=== PATIENT | female | born 1935 | race Two or more races ===

== ENCOUNTER 2018-10-23 17:19 | Inpatient (IN) | payer MEDICARE, MEDICAID ==
[~2018-10-23] VITALS: Ht 175.3 cm; Wt 59.0 kg
[~2018-10-23 17:19] MED LIST: Heparin 5000 units/ml inj SUBQ SCH
--- NOTE | 2018-10-23 19:45 | NUR ---
NURSE NOTES: Received report from RONI Mohan. Direct admit from [facility]. Pt not here yet. Ambulance ETA 1900 per report.
[2018-10-23 21:00] VITALS: BP 140/94
--- NOTE | 2018-10-23 21:00 | NUR ---
NURSE NOTES: Direct admit from [facility]. Received report & pt from ambulance tech Handy, pt on gurney. No s/s of acute distress notes & c/o 0/10 pain. Belongings list checked & accounted for. IV site intact & S/L'd. Skin intact. Pt has left wrist splint. VSS. Med recon done. Called Dr. العلي for admission orders. Oriented pt to hospital facility. Bed in lowest position, call light within reach. Will continue to monitor.
[2018-10-23] MEDS ORDERED: VIMPAT200 MG PO (21:53)
[2018-10-23] MEDS ORDERED: NORVASC10 MG ORAL (21:54)
--- NOTE | 2018-10-23 22:30 | NUR ---
NURSE NOTES: Per pt's son Deyvi, pt not entirely allergic to opioids & states that long time ago, pt experienced side effect/adverse reaction such as altered mental status. Pain meds would severely knock out pt even with just Tylenol & Aspirin. Informed Dr. العلي regarding this issue & per MD, still ok to give ordered PRN pain meds & just monitor closely.
[2018-10-23] MEDS ORDERED: Norco 5mg/325mg tab ORAL PRN (22:45)
[2018-10-23] MEDS ORDERED: Morphine Sulfate 2mg/ml Inj(IV/IM USE ONLY) IVP PRN (22:45)
[2018-10-24] VITALS (11 sets, daily range): BP systolic 90–155; BP diastolic 63–89
[2018-10-24 07:24] LABS: BASOPHILS % (AUTO) 1.7 % (0.0-2.0); EOSINOPHILS % (AUTO) 0.7 % (0.0-3.0); HEMOGLOBIN 12.9 G/DL (12.0-16.0); LYMPHOCYTES % (AUTO) 14.5 % (20.0-45.0); MEAN CORPUSCULAR VOLUME 91 FL (80-99); MONOCYTES % (AUTO) 9.4 % (1.0-10.0); NEUTROPHILS % (AUTO) 73.7 % (45.0-75.0); PLATELET COUNT 258 K/UL (150-450); RED CELL DISTRIBUTION WIDTH 12.8 % (11.6-14.8); WHITE BLOOD COUNT 10.1 K/UL (4.8-10.8)
[2018-10-24 07:43] LABS: ANION GAP 10 mmol/L (5-15); BLOOD UREA NITROGEN 20 mg/dL (7-18); CALCIUM 9.7 MG/DL (8.5-10.1); CARBON DIOXIDE 26 MMOL/L (21-32); CHLORIDE 97 MMOL/L (98-107); CREATININE 1.1 MG/DL (0.55-1.30); PHOSPHORUS 3.2 MG/DL (2.5-4.9); POTASSIUM 3.9 MMOL/L (3.5-5.1); SODIUM 133 MMOL/L (136-145)
--- NOTE | 2018-10-24 07:45 | NUR ---
HAND-OFF: Report given to RONI Santos. Endorsed to AM to have consent signed by son (Deyvi)
[2018-10-24 07:50] LABS: INR 1.2 (0.9-1.1)
[2018-10-24] MEDS ORDERED: D5 1/2NS 1,000 ML IV SCH (08:00)
--- NOTE | 2018-10-24 08:00 | NUR ---
NURSE NOTES: Patient is alert and oriented,respirations are unlabored.Left foot pedal pulse strong,no complaint of pain at this time.patient will be NPO after breakfast.Call light within reach,bed alarm is on.
[2018-10-24] MEDS: Heparin 5000 units/ml inj SUBQ SCH ×2 (09:00→21:00)
[2018-10-24] MEDS: Lacosamide 50mg tablet ORAL SCH ×2 (09:41→18:00)
--- NOTE | 2018-10-24 11:26 | Consultation ---
History of Present Illness General Date patient seen: Oct 24, 2018 Present Illness HPI 82 year old female with hx of HTN and seizures had a witnessed fall on 2018. she was taken to [facility]. An x-ray revealed a fracture of the left femoral neck. The patient is transferred to [facility] for insurance purposes. The patient is admitted with left hip fracture for surgical repair. Allergies: Coded Allergies: OPIOIDS - MORPHINE ANALOGUES (Verified Adverse Reaction, Intermediate, Altered Mental Status, 10/23/18) Medication History Scheduled Amlodipine Besylate (Norvasc), 10 MG ORAL DAILY, (Reported) Heparin Sod (Porcine) (Heparin Sodium*), 5,000 UNITS SUBQ EVERY 12 HOURS Lacosamide (Vimpat), 200 MG PO BID, (Reported) Scheduled PRN Hydrocodone Bit/Acetaminophen 5-325* (Gower 5-325*), 2 TAB ORAL Q6H PRN Patient History Healthcare decision maker Resuscitation status Full Code Advanced Directive on File Past Medical/Surgical History Past Medical/Surgical History: (1) History of hypertension Review of Systems All Other Systems: negative except mentioned in HPI Physical Exam General Appearance: cachetic Lines, tubes and drains: peripheral HEENT: normocephalic, atraumatic Neck: non-tender Respiratory/Chest: chest wall non-tender, lungs clear Cardiovascular/Chest: normal peripheral pulses, normal rate Abdomen: normal bowel sounds Last 24 Hour Vital Signs Date Time Temp Pulse Resp B/P (MAP) Pulse Ox O2 Delivery O2 Flow Rate FiO2 10/24/18 09:41 95 126/82 10/24/18 09:00 Room Air 10/24/18 08:00 99.4 92 18 149/78 (101) 99 10/24/18 04:00 98.9 97 20 114/74 (87) 97 10/24/18 00:00 99.5 97 20 124/89 (101) 97 10/23/18 22:00 Room Air 10/23/18 21:00 98.4 99 20 140/94 (109) 98 Laboratory Tests Test 10/24/18 06:26 White Blood Count 10.1 K/UL (4.8-10.8) Red Blood Count 4.50 M/UL (4.20-5.40) Hemoglobin 12.9 G/DL (12.0-16.0) Hematocrit 41.0 % (37.0-47.0) Mean Corpuscular Volume 91 FL (80-99) Mean Corpuscular Hemoglobin 28.7 PG (27.0-31.0) Mean Corpuscular Hemoglobin Concent 31.4 G/DL (32.0-36.0) L Red Cell Distribution Width 12.8 % (11.6-14.8) Platelet Count 258 K/UL (150-450) Mean Platelet Volume 5.3 FL (6.5-10.1) L Neutrophils (%) (Auto) 73.7 % (45.0-75.0) Lymphocytes (%) (Auto) 14.5 % (20.0-45.0) L Monocytes (%) (Auto) 9.4 % (1.0-10.0) Eosinophils (%) (Auto) 0.7 % (0.0-3.0) Basophils (%) (Auto) 1.7 % (0.0-2.0) Prothrombin Time 12.5 SEC (9.30-11.50) H Prothromb Time International Ratio 1.2 (0.9-1.1) H Activated Partial Thromboplast Time 32 SEC (23-33) Sodium Level 133 MMOL/L (136-145) L Potassium Level 3.9 MMOL/L (3.5-5.1) Chloride Level 97 MMOL/L (98-107) L Carbon Dioxide Level 26 MMOL/L (21-32) Anion Gap 10 mmol/L (5-15) Blood Urea Nitrogen 20 mg/dL (7-18) H Creatinine 1.1 MG/DL (0.55-1.30) Estimat Glomerular Filtration Rate mL/min (>60) Glucose Level 112 MG/DL (74-106) H Calcium Level 9.7 MG/DL (8.5-10.1) Phosphorus Level 3.2 MG/DL (2.5-4.9) Magnesium Level 2.0 MG/DL (1.8-2.4) Troponin I 0.000 ng/mL (0.000-0.056) Height (Feet): 5 Height (Inches): 9.00 Weight (Pounds): 130 Medications Current Medications Medications (Trade) Dose Ordered Sig/Brynn Route PRN Reason Start Time Stop Time Status Last Admin Dose Admin Acetaminophen (Tylenol) 650 mg Q6H PRN ORAL Mild Pain/Temp > 100.5 10/23/18 22:45 11/22/18 22:44 Acetaminophen/ Hydrocodone Bitart (Gower 5/325) 1 tab Q6H PRN ORAL Moderate pain (4-6) 10/23/18 22:45 10/30/18 22:44 Amlodipine Besylate (Norvasc) 10 mg DAILY ORAL 10/24/18 09:00 11/23/18 08:59 10/24/18 09:41 Dextrose/Sodium Chloride 1,000 ml @ 75 mls/hr [id number] IV 10/24/18 08:00 11/23/18 07:59 10/24/18 09:42 Heparin Sodium (Porcine) (Heparin 5000 units/ml) 5,000 units EVERY 12 HOURS SUBQ 10/24/18 09:00 11/22/18 08:59 Lacosamide (Vimpat) 200 mg BID ORAL 10/24/18 09:00 11/23/18 08:59 10/24/18 09:41 Morphine Sulfate (Morphine Sulfate) 2 mg EVERY 6 HOURS PRN IVP Severe pain (7-10) 10/23/18 22:45 10/30/18 22:44 Ondansetron HCl (Zofran) 4 mg EVERY 4 HOURS PRN IVP Nausea & Vomiting 10/23/18 22:45 11/22/18 22:44 Assessment/Plan Problem List: (1) Hip fracture, left ICD Codes: S72.002A - Fracture of unspecified part of neck of left femur, initial encounter for closed fracture SNOMED: 586216283 (2) History of hypertension ICD Codes: Z86.79 - Personal history of other diseases of the circulatory system SNOMED: 334504592 (3) Hyponatremia ICD Codes: E87.1 - Hypo-osmolality and hyponatremia SNOMED: 71361451 Assessment/Plan ortho evaluation pain management hyponatremia w/u monitor BP Edd Harris MD Oct 24, 2018 11:26
[2018-10-24] MEDS ORDERED: HYDROcodone/Acetamin 10/325 tab ORAL PRN ×2 (11:30)
--- NOTE | 2018-10-24 13:20 | NUR ---
CASE MANAGEMENT:REVIEW 82 YR OLD FEMALE TRANSFERRED FROM [facility] SI: LEFT HIP FRACTURE 98.4 99 20 140/94 98% ON RA NA-133 BUN+20 GLUCOSE+112 INR+1.2 IS: TO SURGERY FOR LT HIP HEMIARTHROPLASTY : MED/SURG STATUS 3 EAST INTERQUAL CRITERIA MET
--- NOTE | 2018-10-24 14:15 | Consultation ---
DATE OF CONSULTATION: 10/23/2018 CONSULTING PHYSICIAN: Kamlesh Moses M.D. CHIEF COMPLAINT: Left hip pain. HISTORY OF PRESENT ILLNESS: This is a pleasant patient female who sustained a mechanical fall. She was diagnosed with left femoral neck fracture at outside facility, transferred here for further care and recommendations. PAST MEDICAL HISTORY: Reviewed from the intake chart. SURGICAL HISTORY: Reviewed from the intake chart. MEDICATIONS: Reviewed from the intake chart. PHYSICAL EXAMINATION: GENERAL: The patient is resting comfortably on bed. She has moderate discomfort in the left leg. EXTREMITIES: Left leg is shortened and internally rotated. Posterior calf is soft. NEUROVASCULAR: Normal. IMAGING STUDIES: Show displaced femoral neck fracture. DISCUSSION: At this point, she is indicative of operative fixation. She is actually pretty active female who ambulates without any assistive device. We will make her NPO after midnight in anticipation of surgery tomorrow. She is pending medical clearance in the meantime. Kamlesh Moses M.D. DR: SOLE JOB#: [id number] CC:
--- NOTE | 2018-10-24 16:39 | History & Physical ---
History and Physical History & Physicial Dictated for Int Med-Dr العلي no. [id number]. Cardiovascular risk for surgery is low, therefore no contraindications for surgery. Trent Alcantara MD Oct 24, 2018 16:39
[2018-10-24] MEDS ORDERED: Bupivacaine 0.5% Inj 30 ml vial INJ ONE (17:15)
[2018-10-24] MEDS ORDERED: cloNIDine 1000mcg/10ml inj ONE (17:15)
--- NOTE | 2018-10-24 17:19 | Cardiac Electrophysiology PN ---
Subjective Subjective Cardiology consult dictated.[id number] No CAD or CHF. Echo Nl EF 60% Troponin negative No syncope. No further cardiac testing needed prior to Left hip ORIF DW RN Objective Last 24 Hour Vital Signs Date Time Temp Pulse Resp B/P (MAP) Pulse Ox O2 Delivery O2 Flow Rate FiO2 10/24/18 09:41 95 126/82 10/24/18 09:00 Room Air 10/24/18 08:00 99.4 92 18 149/78 (101) 99 10/24/18 04:00 98.9 97 20 114/74 (87) 97 10/24/18 00:00 99.5 97 20 124/89 (101) 97 10/23/18 22:00 Room Air 10/23/18 21:00 98.4 99 20 140/94 (109) 98 Laboratory Tests Test 10/24/18 06:25 10/24/18 06:26 Osmolality 283 mOsm/kg (297-317) L Uric Acid 5.3 MG/DL (2.6-7.2) Thyroid Stimulating Hormone (TSH) 1.382 uiU/mL (0.358-3.740) Free Thyroxine 1.19 NG/DL (0.76-1.46) Free Triiodothyronine 2.5 pg/mL (2.3-4.2) Cortisol Pending White Blood Count 10.1 K/UL (4.8-10.8) Red Blood Count 4.50 M/UL (4.20-5.40) Hemoglobin 12.9 G/DL (12.0-16.0) Hematocrit 41.0 % (37.0-47.0) Mean Corpuscular Volume 91 FL (80-99) Mean Corpuscular Hemoglobin 28.7 PG (27.0-31.0) Mean Corpuscular Hemoglobin Concent 31.4 G/DL (32.0-36.0) L Red Cell Distribution Width 12.8 % (11.6-14.8) Platelet Count 258 K/UL (150-450) Mean Platelet Volume 5.3 FL (6.5-10.1) L Neutrophils (%) (Auto) 73.7 % (45.0-75.0) Lymphocytes (%) (Auto) 14.5 % (20.0-45.0) L Monocytes (%) (Auto) 9.4 % (1.0-10.0) Eosinophils (%) (Auto) 0.7 % (0.0-3.0) Basophils (%) (Auto) 1.7 % (0.0-2.0) Prothrombin Time 12.5 SEC (9.30-11.50) H Prothromb Time International Ratio 1.2 (0.9-1.1) H Activated Partial Thromboplast Time 32 SEC (23-33) Sodium Level 133 MMOL/L (136-145) L Potassium Level 3.9 MMOL/L (3.5-5.1) Chloride Level 97 MMOL/L (98-107) L Carbon Dioxide Level 26 MMOL/L (21-32) Anion Gap 10 mmol/L (5-15) Blood Urea Nitrogen 20 mg/dL (7-18) H Creatinine 1.1 MG/DL (0.55-1.30) Estimat Glomerular Filtration Rate mL/min (>60) Glucose Level 112 MG/DL (74-106) H Calcium Level 9.7 MG/DL (8.5-10.1) Phosphorus Level 3.2 MG/DL (2.5-4.9) Magnesium Level 2.0 MG/DL (1.8-2.4) Troponin I 0.000 ng/mL (0.000-0.056) Daniel Aguilar MD Oct 24, 2018 17:19
--- NOTE | 2018-10-24 17:23 | Anethesia Preoperative Eval ---
Anesthesia Pre-op PMH/ROS General Date of Evaluation: Oct 24, 2018 Time of Evaluation: 19:01 Anesthesiologist: Rony ASA Score: ASA 3 - Emergency Mallampati Score Class I : Soft palate, uvula, fauces, pillars visible Class II: Soft palate, uvula, fauces visible Class III: Soft palate, base of uvula visible Class IV: Only hard plate visible Mallampati Classification: Class II Surgeon: Josué Diagnosis: L Hip Fx Surgical Procedure: L Hip Hemiarthroplasty Anesthesia History: none Family History: no anesthesia problems Allergies: Coded Allergies: OPIOIDS - MORPHINE ANALOGUES (Verified Adverse Reaction, Intermediate, Altered Mental Status, 10/23/18) Medications: see eMAR Patient NPO?: Yes Past Medical History Cardiovascular: Reports: HTN Anesthesia Pre-op Phys. Exam Physician Exam Last Vital Signs Date Time Temp Pulse Resp B/P (MAP) Pulse Ox O2 Delivery O2 Flow Rate FiO2 10/24/18 09:41 95 126/82 10/24/18 09:00 Room Air 10/24/18 08:00 99.4 18 99 Constitutional: NAD Neurologic: CN 2-12 intact Cardiovascular: RRR Respiratory: CTA Gastrointestinal: S/NT/ND Airway Exam Mallampati Score: Class II MO: limited ROM: limited Teeth: missing Dentures: lower Anesthesia Pre-op A/P Labs Hematology Test 10/24/18 06:26 White Blood Count 10.1 K/UL (4.8-10.8) Red Blood Count 4.50 M/UL (4.20-5.40) Hemoglobin 12.9 G/DL (12.0-16.0) Hematocrit 41.0 % (37.0-47.0) Mean Corpuscular Volume 91 FL (80-99) Mean Corpuscular Hemoglobin 28.7 PG (27.0-31.0) Mean Corpuscular Hemoglobin Concent 31.4 G/DL (32.0-36.0) L Red Cell Distribution Width 12.8 % (11.6-14.8) Platelet Count 258 K/UL (150-450) Mean Platelet Volume 5.3 FL (6.5-10.1) L Neutrophils (%) (Auto) 73.7 % (45.0-75.0) Lymphocytes (%) (Auto) 14.5 % (20.0-45.0) L Monocytes (%) (Auto) 9.4 % (1.0-10.0) Eosinophils (%) (Auto) 0.7 % (0.0-3.0) Basophils (%) (Auto) 1.7 % (0.0-2.0) Coagulation Test 10/24/18 06:26 Prothrombin Time 12.5 SEC (9.30-11.50) H Prothromb Time International Ratio 1.2 (0.9-1.1) H Activated Partial Thromboplast Time 32 SEC (23-33) Chemistry Test 10/24/18 06:25 10/24/18 06:26 Osmolality 283 mOsm/kg (297-317) L Uric Acid 5.3 MG/DL (2.6-7.2) Thyroid Stimulating Hormone (TSH) 1.382 uiU/mL (0.358-3.740) Free Thyroxine 1.19 NG/DL (0.76-1.46) Free Triiodothyronine 2.5 pg/mL (2.3-4.2) Cortisol Pending Sodium Level 133 MMOL/L (136-145) L Potassium Level 3.9 MMOL/L (3.5-5.1) Chloride Level 97 MMOL/L (98-107) L Carbon Dioxide Level 26 MMOL/L (21-32) Anion Gap 10 mmol/L (5-15) Blood Urea Nitrogen 20 mg/dL (7-18) H Creatinine 1.1 MG/DL (0.55-1.30) Estimat Glomerular Filtration Rate mL/min (>60) Glucose Level 112 MG/DL (74-106) H Calcium Level 9.7 MG/DL (8.5-10.1) Phosphorus Level 3.2 MG/DL (2.5-4.9) Magnesium Level 2.0 MG/DL (1.8-2.4) Troponin I 0.000 ng/mL (0.000-0.056) Risk Assessment & Plan Assessment: ASA 3E Plan: GA, Spinal Status Change Before Surgery: No Pre-Antibiotics Dru Gram Ancef IV Given Within 1 Hr of Incision: Yes Time Given: 07:26 Joshua Uribe MD Oct 24, 2018 17:23
[2018-10-24] MEDS ORDERED: LR 1000ml 1,000 ML IVLG SCH (17:41)
[2018-10-24] MEDS ORDERED: Midazolam 2mg/2ml Inj IVP PRN (17:45)
[2018-10-24] MEDS ORDERED: Meperidine 50mg/ml Inj(FOR RIGORS ONLY) IVP PRN (17:45)
[2018-10-24] MEDS ORDERED: Atropine Sulfate 0.4mg/ml inj IVP PRN (17:45)
[2018-10-24] MEDS ORDERED: DiphenhydrAMINE 50mg/ml Inj IVP PRN (17:45)
[2018-10-24] MEDS ORDERED: Norco 5mg/325mg tab ORAL PRN (17:45)
[2018-10-24] MEDS ORDERED: Hydromorphone 0.5mg/0.5ml inj IVP PRN (17:45)
[2018-10-24] MEDS ORDERED: HYDROcodone/Acetamin 7.5/325 tab ORAL PRN ×2 (17:45→19:15)
[2018-10-24] MEDS ORDERED: Metoclopramide 10mg/2ml Inj IVP PRN (17:45)
[2018-10-24] MEDS ORDERED: fentaNYL 100 mcg/2 mL IV PRN (17:45)
[2018-10-24] MEDS ORDERED: oxyCODONE HCL/Acetaminophen 5/325mg ORAL PRN (17:45)
[2018-10-24] MEDS ORDERED: LORazepam Inj 2mg/ml 1ml IV PRN (17:45)
[2018-10-24] MEDS ORDERED: Ketorolac 30mg Inj ONE (17:46)
[2018-10-24] MEDS ORDERED: Morphine Sulfate PF 0 ML ONE (17:46)
[2018-10-24] MEDS ORDERED: NeoSporin Gu Irrig 1ml Amp IRRIG ONE (17:47)
[2018-10-24] MEDS ORDERED: Bupivacaine w/Epi 0.5% 30ml Vial INJ ONE (17:47)
[2018-10-24] MEDS ORDERED: Bacitracin 50000 Units Vial ONE (17:47)
[2018-10-24] MEDS ORDERED: Alfentanil 2ml Inj ONE (18:07)
[2018-10-24] MEDS ORDERED: Midazolam 2mg/2ml Inj ONE (18:07)
[2018-10-24] MEDS ORDERED: EPINEPHrine 1mg/1ml Amp ONE (18:09)
[2018-10-24] MEDS ORDERED: Sodium Chloride 10ml vial INJ ONE (18:10)
[2018-10-24] MEDS ORDERED: Lidocaine 1% MPF 10mg/ml 5ml ONE (18:15)
--- NOTE | 2018-10-24 18:30 | NUR ---
NURSE NOTES: Patient to OR by Josh,family was here.
--- NOTE | 2018-10-24 18:37 | Immediate Post-Op Evaluation ---
Immediate Post-Op Evalulation Immediate Post-Op Evalulation Procedure: L Hip Hemiarthroplasty Date of Evaluation: Oct 24, 2018 Time of Evaluation: 08:57 IV Fluids: 300 LR Blood Products: 0 Estimated Blood Loss: 50 Urinary Output: 200 Blood Pressure Systolic: 110 Blood Pressure Diastolic: 76 Pulse Rate: 97 Respiratory Rate: 16 O2 Sat by Pulse Oximetry: 100 Temperature (Fahrenheit): 97.6 Pain Score (1-10): 2 Nausea: No Vomiting: No Complications 0 Patient Status: awake, reacts, patent, none Hydration Status: adequate Dru Gram Ancef IV Given Within 1 Hr of Incision: Yes Time Given: 07:26 Joshua Uribe MD Oct 24, 2018 18:37
--- NOTE | 2018-10-24 18:37 | 48 Hour Post Anesthesia Eval ---
Post Anesthesia Evaluation Procedure: L Hip Hemiarthroplasty Date of Evaluation: Oct 24, 2018 Time of Evaluation: 10:58 Blood Pressure Systolic: 134 0: 78 Pulse Rate: 98 Respiratory Rate: 18 Temperature (Fahrenheit): 98.3 O2 Sat by Pulse Oximetry: 100 Airway: patent Nausea: No Vomiting: No Pain Intensity: 2 Hydration Status: adequate Cardiopulmonary Status: Stable Mental Status/LOC: patient returned to baseline Follow-up Care/Observations: 0 Post-Anesthesia Complications: 0 Follow-up care needed: N/A Joshua Uribe MD Oct 24, 2018 18:37
[2018-10-24] MEDS ORDERED: Sterile Water Irrig 1000ml IRRIG ONE (19:00)
[2018-10-24] MEDS ORDERED: LR 1000ml ONE (19:00)
[2018-10-24] MEDS ORDERED: NS Irrig 1000ml IRRIG ONE (19:07)
--- NOTE | 2018-10-24 19:11 | Pre-Procedure Note/Attestation ---
Pre-Procedure Note/Attestation Complete Prior to Procedure Planned Procedure: right Procedure Narrative: hip hemiarthroplasty Indications for Procedure Pre-Operative Diagnosis: right hip femoral neck fx Attestation I attest that I discussed the nature of the procedure; its benefits; risks and complications; and alternatives (and the risks and benefits of such alternatives ), prior to the procedure, with the patient (or the patient's legal consumer sales representative). I attest that, if there was a reasonable possibility of needing a blood transfusion, the patient (or the patient's legal consumer sales representative) was given the [facility] standardized written summary, pursuant to the [place] Blood Safety Act ([place] Health and Safety Code # 1645, as amended). I attest that I re-evaluated the patient just prior to the surgery and that there has been no change in the patient's H&P, except as documented below: Kamlesh Moses MD Oct 24, 2018 19:11
--- NOTE | 2018-10-24 19:11 | Operative Note - PDOC ---
Operative Note Operative Note Pre-op Diagnosis: Leftt hip femoral neck fx Procedure: left hip hemiarthroplasty Post-op Diagnosis: same as pre-op plus Operative Findings: consistent w/pre-op dx studies Anesthesia: regional Specimen: none Complications: none Condition: stable Estimated Blood Loss: none Implant(s) used?: Yes Kamlesh Moses MD Oct 24, 2018 19:11
[2018-10-24] MEDS ORDERED: Morphine Sulfate 2mg/ml Inj(IV/IM USE ONLY) IVP PRN ×2 (19:15)
[2018-10-24] MEDS ORDERED: Milk of Magnesia 30ml Ud ORAL PRN (19:15)
--- NOTE | 2018-10-24 19:30 | NUR ---
HAND-OFF: Report given to Dia TAMAYO.
[2018-10-24] MEDS ORDERED: ePHEDrine 50mg/ml Inj ONE (19:45)
--- NOTE | 2018-10-24 20:45 | History and Physical Report ---
DATE OF ADMISSION: 10/23/2018 CHIEF COMPLAINT: The patient is an 82-year-old female, presents with chief complaint of left hip pain. HISTORY OF PRESENT ILLNESS: The patient had a witnessed fall yesterday 10/23/2018. The patient presented to [facility]. An x-ray revealed a fracture of the left femoral neck. The patient is transferred to [facility] for insurance purposes. The patient is admitted with left hip fracture for surgical repair. REVIEW OF SYSTEMS: CONSTITUTIONAL: The patient denies weight loss or weight gain. The patient denies fevers or chills. HEENT: The patient denies ear or throat pain. The patient denies headache. CARDIOVASCULAR: The patient denies palpitations or chest pain. CHEST: The patient denies wheeze or shortness of breath. ABDOMINAL: The patient denies nausea, vomiting, diarrhea, or constipation. GENITOURINARY: The patient denies dysuria or increased frequency of urination. NEUROMUSCULAR: The patient complains of left hip pain as above. The patient denies seizures or generalized weakness. PAST MEDICAL HISTORY: Significant for hypertension. PAST SURGICAL HISTORY: The patient denies. CURRENT MEDICATIONS: 1. Norvasc 10 mg one tablet p.o. daily. 2. Vimpat 200 mg p.o. twice daily. ALLERGIES: No known drug allergies. SOCIAL HISTORY: The patient is single and lives alone. The patient denies tobacco or alcohol use. PHYSICAL EXAMINATION: VITAL SIGNS: Temperature 98.9 degrees, respirations 20, pulse 97, and blood pressure 114/74. GENERAL: The patient is well-developed, well-nourished female, in no apparent distress. HEENT: Eyes, pupils equal and responsive to light and accommodation. Extraocular movements are intact. NECK: Supple without lymphadenopathy. CHEST: Lungs are clear to auscultation bilaterally without wheezes or rales. CARDIOVASCULAR: Regular rhythm and rate. S1 and S2 are normal without murmurs, rubs, or gallops. ABDOMEN: Soft, nontender, and nondistended. Positive bowel sounds. No evidence of hepatosplenomegaly. Currently, no rebound or guarding noted. EXTREMITIES: Pain to palpation on left hip. Otherwise, without clubbing, cyanosis, or edema. RECTAL: Not performed. GENITAL: Not performed. NEUROLOGIC: Cranial nerves II through XII are grossly intact without focal deficits. Motor strength is 5/5 bilaterally intact. Deep tendon reflexes are 2+ plantar. LABORATORY AND DIAGNOSTIC DATA: An x-ray of the left hip demonstrate fracture of the left femoral neck. Laboratory studies, WBC 10.8, hemoglobin 11.9, hematocrit 35.8, and platelets 295,000. Sodium 133, potassium 3.9, chloride 97, CO2 26, BUN 20, creatinine 1.1, glucose 112, troponin 0.00. ASSESSMENT: This is an 82-year-old female: 1. Fracture of the left femoral neck. 2. Hypertension. 3. History of seizure disorder. TREATMENT: 1. Left femoral neck fracture. An Orthopedic consultation will be obtained with Dr. Kamlesh Moses. The patient is scheduled for open reduction and internal fixation of left femoral neck fracture. We will follow recommendation of Orthopedic Surgery. 2. Hypertension. Continue Norvasc as above. 3. Seizure disorder. Continue Vimpat as above. 4. Cardiovascular risk for surgery in the patient's. Therefore, the patient has no contraindications for surgery. Trent Alcantara M.D. DR: Melissa JOB#: [id number] CC:
[2018-10-24] MEDS: D5 1/2NS w/KCl 20mEq 1,000 ML IV SCH ×2 (21:00→23:42)
--- NOTE | 2018-10-24 21:45 | Consultation ---
DATE OF CONSULTATION: 10/24/2018 CARDIOLOGY CONSULTATION CONSULTING PHYSICIAN: Daniel Aguilar M.D. REASON FOR CONSULTATION: Preoperative clearance for hip surgery. HISTORY OF PRESENT ILLNESS: The patient is an 82-year-old lady with history of hypertension, who had sustained a witnessed mechanical fall. The patient was taken from home to [facility] and then was transferred to [facility] for further evaluation and surgery. An x-ray shows fracture of the left femoral neck with proximal retraction of the distal femoral component. REVIEW OF SYSTEMS: Review of systems was performed and was negative other than what was mentioned in the history of present illness. PAST MEDICAL HISTORY: Hypertension. FAMILY HISTORY: Noncontributory. SOCIAL HISTORY: She lives at home. Does not smoke or drink alcohol. PHYSICAL EXAMINATION: VITAL SIGNS: Blood pressure 126/82, pulse 92, respirations 18, and she is afebrile. HEAD AND NECK: Showed no JVD or carotid bruit. LUNGS: Clear. CARDIOVASCULAR: Shows regular S1 and S2 with no gallop or murmur. ABDOMEN: Soft. EXTREMITIES: No pitting edema. LABORATORY AND DIAGNOSTIC DATA: Labs show white count of 10.1, hemoglobin 13, hematocrit 41, and platelet count 258. Sodium 133, potassium 3.9, BUN 20, and creatinine 1.0. Troponin is negative. INR is 1.2. Echocardiogram showed normal left ventricular systolic function with ejection fraction of 60%. ASSESSMENT AND PLAN: 1. Left hip fracture after a mechanical fall. There is no evidence of syncope. The patient denies any prior myocardial infarction, coronary artery disease or congestive heart failure. The patient's blood pressure is stable off antihypertensive agents. Her echocardiogram also showed normal left ventricular systolic function with ejection fraction of 60%. No further cardiac intervention is necessary prior to proceeding with the left hip surgery. 2. Questionable history of hypertension. Blood pressure is currently stable on Norvasc 10 mg daily. Thank you very much . for allowing me to participate in the care of this patient. Please do not hesitate to contact me for any questions regarding my evaluation. Daniel Aguilar M.D. DR: IVONNE JOB#: [id number] CC:
[2018-10-24] MEDS ORDERED: ceFAZolin sod 2 GM in D5W 110 ML IV SCH (22:00)
--- NOTE | 2018-10-24 22:01 | NUR ---
Received patient from surgery, awake, alert, oriented, family is at bedside, VSS, afebrile, advance diet as tolerated. Incentive spirometer advised, cough and deep breathing exercises advised. Per Dr. Moses no abduction pillow is needed for after care. Patient received spinal anesthesia during surgery, check for circulation is done periodically.Call light is within reach, bed is in low position, locked and alarm is on, will continue to monitor for safety and comfort.
[2018-10-24] MEDS: ceFAZolin 2gm/50ml Premix 50 ML IV SCH (23:30)
[2018-10-25] VITALS (7 sets, daily range): BP systolic 111–130; BP diastolic 69–81
--- NOTE | 2018-10-25 02:45 | Operative Note - Dictated ---
DATE OF OPERATION: 10/24/2018 PREOPERATIVE DIAGNOSIS: Left femoral neck fracture, displaced. POSTOPERATIVE DIAGNOSIS: Left femoral neck fracture, displaced. PROCEDURE: Left total hip arthroplasty. SURGEON: Kamlesh Moses M.D. ANESTHESIA: Spinal. INDICATION FOR PROCEDURE: The patient is a pleasant female, who sustained a mechanical fall, diagnosed with displaced femoral neck fracture indicative of operative fixation and left hip hemiarthroplasty. Risks, limitations, expectations, and complications of procedure were discussed in detail including leg length discrepancy, nerve damage, instability, infection, risk of anesthesia, medical complications, DVT, PE, and mortality risks. All questions were addressed. DESCRIPTION OF PROCEDURE: After informed consent was obtained, the patient was brought to the operating room and placed in the lateral decubitus position. We padded all the extremities. Ancef was administered. Time-out was performed. Posterolateral skin incision was then made. Fascia livier was incised. Piriformis and short external rotator were T'd tagged with #2 FiberWire and neck cut below the femoral neck was performed. The head was removed, size to a 47 mm diameter. Sequential broaching up to size #6 was performed, 6 high offset and 0 head neck combo was selected. This seemed like the soft tissue slightly tight; therefore, -4 was selected instead. Hip was taken through range of motion, flexed to 120 degrees, 90 degrees of flexion, internal rotation was 60 extension, external rotation was stable. Leg lengths appeared to be clinically equal. At this point, trial components removed. Final implants were impacted into place. The capsule was reapproximated through two drills holes to the greater trochanter. Fascia livier was approximated with #1 Vicryl suture, 2-0 Vicryl suture, 3-0 Monocryl, and Dermabond dressing. ESTIMATED BLOOD LOSS: 50 mL. COMPLICATIONS: None. SPECIMENS: Include femoral head. IMPLANTS: Include size #47 bipolar head, size 6 high offset accolade stem with -4 head combo. Kamlesh Moses M.D. DR: KIM JOB#: [id number] CC: TOMAS
--- NOTE | 2018-10-25 07:03 | NUR ---
HAND-OFF: Report given to Mick TAMAYO.
--- NOTE | 2018-10-25 07:05 | NUR ---
NURSE NOTES: Patient lying in bed awake. No complain of pain or distress at this time. Skin intact and dry. Surgical dressing intact and dry. Ice pack applied. IV dressing intact and dry. Bed lowest position. Call light within reach. Will continue to monitor.
[2018-10-25 07:15] LABS: APPEARANCE,URINE CLEAR; BILIRUBIN, URINE NEGATIVE (NEGATIVE); COLOR,URINE PALE YELLOW; GLUCOSE, URINE (UA) NEGATIVE (NEGATIVE); KETONES,URINE NEGATIVE (NEGATIVE); LEUKOCYTE ESTERASE ,URINE NEGATIVE (NEGATIVE); NITRITE,URINE NEGATIVE (NEGATIVE); PH,URINE 5 (4.5-8.0); PROTEIN,URINE 1+ (NEGATIVE); UROBILINOGEN,URINE NORMAL MG/DL (0.0-1.0)
[2018-10-25 07:28] LABS: BASOPHILS % (AUTO) 1.1 % (0.0-2.0); EOSINOPHILS % (AUTO) 0.2 % (0.0-3.0); HEMATOCRIT 38.4 % (37.0-47.0); HEMOGLOBIN 12.1 G/DL (12.0-16.0); LYMPHOCYTES % (AUTO) 12.4 % (20.0-45.0); MEAN CORPUSCULAR VOLUME 90 FL (80-99); MONOCYTES % (AUTO) 13.9 % (1.0-10.0); NEUTROPHILS % (AUTO) 72.4 % (45.0-75.0); PLATELET COUNT 245 K/UL (150-450); RED BLOOD COUNT 4.25 M/UL (4.20-5.40); RED CELL DISTRIBUTION WIDTH 13.1 % (11.6-14.8); WHITE BLOOD COUNT 9.4 K/UL (4.8-10.8)
[2018-10-25 07:49] LABS: ALANINE AMINOTRANSFERASE 22 U/L (12-78); ALBUMIN 2.8 G/DL (3.4-5.0); ALBUMIN/GLOBULIN RATIO 0.7 (1.0-2.7); ALKALINE PHOSPHATASE 73 U/L (46-116); ANION GAP 10 mmol/L (5-15); ASPARTATE AMINO TRANSFERASE 25 U/L (15-37); BILIRUBIN,TOTAL 0.4 MG/DL (0.2-1.0); BLOOD UREA NITROGEN 20 mg/dL (7-18); CALCIUM 9.2 MG/DL (8.5-10.1); CARBON DIOXIDE 26 MMOL/L (21-32); CHLORIDE 101 MMOL/L (98-107); CREATININE 1.1 MG/DL (0.55-1.30); PHOSPHORUS 3.1 MG/DL (2.5-4.9); POTASSIUM 4.2 MMOL/L (3.5-5.1); SODIUM 136 MMOL/L (136-145)
[2018-10-25] MEDS: ceFAZolin 2gm/50ml Premix 50 ML IV SCH (08:28)
[2018-10-25] MEDS: Docusate 100mg cap ORAL SCH ×3 (08:29→17:33)
[2018-10-25] MEDS: celeBREX 200mg Cap **SURGERY PATIENTS ONLY ORAL SCH (08:31)
[2018-10-25] MEDS: Lacosamide 50mg tablet ORAL SCH ×2 (08:31→17:33)
[2018-10-25] MEDS: Heparin 5000 units/ml inj SUBQ SCH ×2 (08:41→21:04)
--- NOTE | 2018-10-25 10:05 | NUR ---
Social Work This Sw received a consult for a home safety evaluation. This Sw spoke with Addie and met with son, Deyvi ([phone]) currently at bedside who are recommending SNF rehab at discharge. Son explains patient has been at [facility] in the past and agreement with this facility. Son reported patient lives with two sons, one daughter and is never alone in her home. Patient was independent with all ADLs, ambulation and does not use any DME. Patient is alert/oriented x4, but can be confused from her anti-seizure medications, according to son. Pending transfer to SNF once medically cleared.
[2018-10-25] MEDS: Norco 5mg/325mg tab ORAL PRN (10:19)
--- NOTE | 2018-10-25 11:00 | Diagnostic Imaging Report ---
Indication: Pain, postoperative, status post left hip replacement Technique: One view of the pelvis Comparison: none Findings: There is a left hip hemiarthroplasty prosthesis in place. This appears well aligned. Retained air from the surgical exposure is seen in the soft tissues. Yarbrough catheter is noted. Impression: Postoperative left hip. No unusual features
--- NOTE | 2018-10-25 15:05 | NUR ---
P.T Note: late entry 1120 P.T evaluation completed and treatment initiated. Please refer to P.T evaluation for current functional status. Pt is alert, O x 4 , pleasant and cooperative.Pt is limited mostly by weakness , fear of movement and increased pain on the L hand/wrist and L hip aggravated by movement initiation. Pt was premedicated prior to evaluation. Pt. require extended amount of time, verbal cues for reassurance and motivation to participate with mobility tasks as well as manual cues for hand placement for proper mobility sequencing to minimize pain with movement. MAX A X 2 for rolling and supine to/from sit. Pt able to sit with BUE support at the EOB however unable to stand and transfer at this time. Pt would benefit from skilled P.T service to work on strength , balance and endurance to improve activity tolerance, independence in functional mobility and safety. Recommend SNF for further rehab VS home at [place]. Thank you for this referral.
[2018-10-25] MEDS ORDERED: NORCO 5-325 TA1 EACH ORAL (15:34)
[2018-10-25] MEDS ORDERED: HEPARIN SO5000 UNIT2 SUBQ (15:34)
--- NOTE | 2018-10-25 15:36 | Pulmonology Progress Note ---
Assessment/Plan Problems: (1) Hip fracture, left (2) History of hypertension (3) Hyponatremia Assessment/Plan tolerated surgery very well pain management dvt prohylaxis watch BP Subjective ROS Limited/Unobtainable: No Constitutional: Reports: no symptoms HEENT: Repors: no symptoms Allergies: Coded Allergies: OPIOIDS - MORPHINE ANALOGUES (Verified Adverse Reaction, Intermediate, Altered Mental Status, 10/23/18) Objective Last 24 Hour Vital Signs Date Time Temp Pulse Resp B/P (MAP) Pulse Ox O2 Delivery O2 Flow Rate FiO2 10/25/18 12:00 97.3 84 18 112/73 (86) 98 10/25/18 09:00 Room Air 10/25/18 08:28 98 130/78 10/25/18 08:00 97.1 98 17 130/78 (95) 96 10/25/18 04:00 97.9 97 17 130/81 (97) 10/25/18 01:09 97.6 77 18 111/69 (83) 10/25/18 00:00 97.6 83 17 111/69 (83) 10/24/18 22:46 Room Air 10/24/18 21:45 97.5 97 20 96/63 98 Nasal Cannula 3 10/24/18 21:30 96 20 98/63 97 Nasal Cannula 3 10/24/18 21:15 98 20 90/69 98 Nasal Cannula 3 10/24/18 21:00 101 17 91/74 99 Nasal Cannula 3 10/24/18 20:50 105 18 93/68 100 Simple Mask 6 10/24/18 20:45 97.6 101 16 110/76 100 Simple Mask 6 10/24/18 20:43 98 18 100 10/24/18 20:41 97 16 100 10/24/18 16:00 100.5 100 18 124/87 (99) 99 Intake and Output 10/24/18 10/25/18 19:00 07:00 Intake Total 850 ml 520 ml Output Total 200 ml Balance 850 ml 320 ml Intake Oral 100 ml 0 ml IV Total 750 ml 400 ml Other 120 ml Output Urine Total 200 ml # Voids 4 General Appearance: cachetic HEENT: normocephalic, atraumatic Respiratory/Chest: chest wall non-tender, lungs clear Cardiovascular: normal peripheral pulses, regular rhythm Abdomen: soft, non tender, no organomegaly Extremities: no cyanosis Skin: no rash Microbiology Date/Time Source Procedure Growth Status 10/24/18 05:00 Rectum VRE Culture Pending Resulted 10/24/18 05:00 Rectum - Final Resulted Laboratory Tests 10/25/18 05:00: Urine Color Pale yellow, Urine Appearance Clear, Urine pH 5, Urine Specific [place] 1.020, Urine Protein 1+H, Urine Glucose (UA) Negative, Urine Ketones Negative, Urine Blood 1+H, Urine Nitrite Negative, Urine Bilirubin Negative, Urine Urobilinogen Normal, Urine Leukocyte Esterase Negative, Urine RBC 2-4H, Urine WBC 0-2, Urine Squamous Epithelial Cells Few, Urine Bacteria Few, Urine Osmolality 443, Urine Random Sodium 59 10/25/18 06:18: White Blood Count 9.4, Red Blood Count 4.25, Hemoglobin 12.1, Hematocrit 38.4, Mean Corpuscular Volume 90, Mean Corpuscular Hemoglobin 28.5, Mean Corpuscular Hemoglobin Concent 31.7L, Red Cell Distribution Width 13.1, Platelet Count 245, Mean Platelet Volume 5.7L, Neutrophils (%) (Auto) 72.4, Lymphocytes (%) (Auto) 12.4L, Monocytes (%) (Auto) 13.9H, Eosinophils (%) (Auto) 0.2, Basophils (%) ( Auto) 1.1, Sodium Level 136, Potassium Level 4.2, Chloride Level 101, Carbon Dioxide Level 26, Anion Gap 10, Blood Urea Nitrogen 20H, Creatinine 1.1, Estimat Glomerular Filtration Rate , Glucose Level 135H, Calcium Level 9.2, Phosphorus Level 3.1, Magnesium Level 2.0, Total Bilirubin 0.4, Aspartate Amino Transf (AST/SGOT) 25, Alanine Aminotransferase (ALT/SGPT) 22, Alkaline Phosphatase 73, Total Protein 6.6, Albumin 2.8L, Globulin 3.8, Albumin/Globulin Ratio 0.7L Current Medications Medications (Trade) Dose Ordered Sig/Brynn Route PRN Reason Start Time Stop Time Status Last Admin Dose Admin Acetaminophen (Tylenol) 650 mg Q6H PRN ORAL Mild Pain/Temp > 100.5 10/23/18 22:45 11/22/18 22:44 Acetaminophen/ Hydrocodone Bitart ([place] 5/325) 2 tab Q6H PRN ORAL Severe Pain (Pain Scale 7-10) 10/24/18 19:15 10/31/18 19:14 10/25/18 10:19 Acetaminophen/ Hydrocodone Bitart ([place] 7.5/325) 1 tab Q4H PRN ORAL Moderate Pain (Pain Scale 4-6) 10/24/18 19:15 10/31/18 19:14 Amlodipine Besylate (Norvasc) 10 mg DAILY ORAL 10/24/18 09:00 11/23/18 08:59 10/25/18 08:28 Celecoxib (CeleBREX) 200 mg DAILY ORAL 10/25/18 09:00 11/24/18 08:59 10/25/18 08:31 Dextrose/ Electrolytes 1,000 ml @ 75 mls/hr [id number] IV 10/24/18 21:00 11/23/18 20:59 10/24/18 23:42 Docusate Sodium (Colace) 100 mg THREE TIMES A DAY ORAL 10/25/18 09:00 11/24/18 08:59 10/25/18 13:43 Heparin Sodium (Porcine) (Heparin 5000 units/ml) 5,000 units EVERY 12 HOURS SUBQ 10/24/18 09:00 11/22/18 08:59 10/25/18 08:41 Lacosamide (Vimpat) 200 mg BID ORAL 10/24/18 09:00 11/23/18 08:59 10/25/18 08:31 Magnesium Hydroxide (Mom) 30 ml DAILYPRN PRN ORAL Constipation 10/24/18 19:15 11/23/18 19:14 Morphine Sulfate (Morphine Sulfate) 1 mg Q3H PRN IVP Pain scale 1-3 10/24/18 19:15 10/31/18 19:14 Morphine Sulfate (Morphine Sulfate) 2 mg Q3H PRN IVP Moderate Pain (Pain Scale 4-6) 10/24/18 19:15 10/31/18 19:14 Ondansetron HCl (Zofran) 4 mg EVERY 4 HOURS PRN IVP Nausea & Vomiting 10/23/18 22:45 11/22/18 22:44 Ondansetron HCl (Zofran) 4 mg Q6H PRN IVP Nausea & Vomiting 10/24/18 19:15 11/23/18 19:14 Temazepam (Restoril) 7.5 mg DAILY PRN ORAL Insomnia 10/24/18 19:15 10/31/18 19:14 Edd Harris MD Oct 25, 2018 15:36
--- NOTE | 2018-10-25 16:06 | Cardiac Electrophysiology PN ---
Assessment/Plan Assessment/Plan 1. Left hip fracture after a mechanical fall. There is no evidence of syncope. The patient denies any prior myocardial infarction, coronary artery disease or congestive heart failure. The patient's blood pressure is stable off antihypertensive agents. Her echocardiogram also showed normal left ventricular systolic function with ejection fraction of 60%. S/P left hip surgery yesterday. 2. Questionable history of hypertension. Blood pressure is currently stable on Norvasc 10 mg daily. Subjective Subjective S/P Left hip ORIF yesterday. No CP or SOB Objective Last 24 Hour Vital Signs Date Time Temp Pulse Resp B/P (MAP) Pulse Ox O2 Delivery O2 Flow Rate FiO2 10/25/18 12:00 97.3 84 18 112/73 (86) 98 10/25/18 09:00 Room Air 10/25/18 08:28 98 130/78 10/25/18 08:00 97.1 98 17 130/78 (95) 96 10/25/18 04:00 97.9 97 17 130/81 (97) 10/25/18 01:09 97.6 77 18 111/69 (83) 10/25/18 00:00 97.6 83 17 111/69 (83) 10/24/18 22:46 Room Air 10/24/18 21:45 97.5 97 20 96/63 98 Nasal Cannula 3 10/24/18 21:30 96 20 98/63 97 Nasal Cannula 3 10/24/18 21:15 98 20 90/69 98 Nasal Cannula 3 10/24/18 21:00 101 17 91/74 99 Nasal Cannula 3 10/24/18 20:50 105 18 93/68 100 Simple Mask 6 10/24/18 20:45 97.6 101 16 110/76 100 Simple Mask 6 10/24/18 20:43 98 18 100 10/24/18 20:41 97 16 100 Intake and Output 10/24/18 10/25/18 19:00 07:00 Intake Total 850 ml 520 ml Output Total 200 ml Balance 850 ml 320 ml Intake Oral 100 ml 0 ml IV Total 750 ml 400 ml Other 120 ml Output Urine Total 200 ml # Voids 4 Laboratory Tests Test 10/25/18 05:00 10/25/18 06:18 Urine Color Pale yellow Urine Appearance Clear Urine pH 5 (4.5-8.0) Urine Specific [place] 1.020 (1.005-1.035) Urine Protein 1+ (NEGATIVE) H Urine Glucose (UA) Negative (NEGATIVE) Urine Ketones Negative (NEGATIVE) Urine Blood 1+ (NEGATIVE) H Urine Nitrite Negative (NEGATIVE) Urine Bilirubin Negative (NEGATIVE) Urine Urobilinogen Normal MG/DL (0.0-1.0) Urine Leukocyte Esterase Negative (NEGATIVE) Urine RBC 2-4 /HPF (0 - 2) H Urine WBC 0-2 /HPF (0 - 2) Urine Squamous Epithelial Cells Few /LPF (NONE/OCC) Urine Bacteria Few /HPF (NONE) Urine Osmolality 443 mOsm/kg (429-449) Urine Random Sodium 59 mmol/L (20-110) White Blood Count 9.4 K/UL (4.8-10.8) Red Blood Count 4.25 M/UL (4.20-5.40) Hemoglobin 12.1 G/DL (12.0-16.0) Hematocrit 38.4 % (37.0-47.0) Mean Corpuscular Volume 90 FL (80-99) Mean Corpuscular Hemoglobin 28.5 PG (27.0-31.0) Mean Corpuscular Hemoglobin Concent 31.7 G/DL (32.0-36.0) L Red Cell Distribution Width 13.1 % (11.6-14.8) Platelet Count 245 K/UL (150-450) Mean Platelet Volume 5.7 FL (6.5-10.1) L Neutrophils (%) (Auto) 72.4 % (45.0-75.0) Lymphocytes (%) (Auto) 12.4 % (20.0-45.0) L Monocytes (%) (Auto) 13.9 % (1.0-10.0) H Eosinophils (%) (Auto) 0.2 % (0.0-3.0) Basophils (%) (Auto) 1.1 % (0.0-2.0) Sodium Level 136 MMOL/L (136-145) Potassium Level 4.2 MMOL/L (3.5-5.1) Chloride Level 101 MMOL/L (98-107) Carbon Dioxide Level 26 MMOL/L (21-32) Anion Gap 10 mmol/L (5-15) Blood Urea Nitrogen 20 mg/dL (7-18) H Creatinine 1.1 MG/DL (0.55-1.30) Estimat Glomerular Filtration Rate mL/min (>60) Glucose Level 135 MG/DL (74-106) H Calcium Level 9.2 MG/DL (8.5-10.1) Phosphorus Level 3.1 MG/DL (2.5-4.9) Magnesium Level 2.0 MG/DL (1.8-2.4) Total Bilirubin 0.4 MG/DL (0.2-1.0) Aspartate Amino Transf (AST/SGOT) 25 U/L (15-37) Alanine Aminotransferase (ALT/SGPT) 22 U/L (12-78) Alkaline Phosphatase 73 U/L (46-116) Total Protein 6.6 G/DL (6.4-8.2) Albumin 2.8 G/DL (3.4-5.0) L Globulin 3.8 g/dL Albumin/Globulin Ratio 0.7 (1.0-2.7) L Microbiology Date/Time Source Procedure Growth Status 10/24/18 05:00 Rectum VRE Culture Pending Resulted 10/24/18 05:00 Rectum - Final Resulted Objective HEAD AND NECK: No JVD LUNGS: Clear. CARDIOVASCULAR: Regular S1 and S2 with no gallop or murmur. ABDOMEN: Soft. EXTREMITIES: No pitting edema. Daniel Aguilar MD Oct 25, 2018 16:06
--- NOTE | 2018-10-25 16:09 | Internal Med Progress Note ---
Subjective Physician Name Gordon العلي Attending Physician Gordon العلي MD Current Medications Medications (Trade) Dose Ordered Sig/Brynn Route PRN Reason Start Time Stop Time Status Last Admin Dose Admin Acetaminophen (Tylenol) 650 mg Q6H PRN ORAL Mild Pain/Temp > 100.5 10/23/18 22:45 11/22/18 22:44 Acetaminophen/ Hydrocodone Bitart ([place] 5/325) 2 tab Q6H PRN ORAL Severe Pain (Pain Scale 7-10) 10/24/18 19:15 10/31/18 19:14 10/25/18 10:19 Acetaminophen/ Hydrocodone Bitart ([place] 7.5/325) 1 tab Q4H PRN ORAL Moderate Pain (Pain Scale 4-6) 10/24/18 19:15 10/31/18 19:14 Amlodipine Besylate (Norvasc) 10 mg DAILY ORAL 10/24/18 09:00 11/23/18 08:59 10/25/18 08:28 Celecoxib (CeleBREX) 200 mg DAILY ORAL 10/25/18 09:00 11/24/18 08:59 10/25/18 08:31 Dextrose/ Electrolytes 1,000 ml @ 75 mls/hr [id number] IV 10/24/18 21:00 11/23/18 20:59 10/24/18 23:42 Docusate Sodium (Colace) 100 mg THREE TIMES A DAY ORAL 10/25/18 09:00 11/24/18 08:59 10/25/18 13:43 Heparin Sodium (Porcine) (Heparin 5000 units/ml) 5,000 units EVERY 12 HOURS SUBQ 10/24/18 09:00 11/22/18 08:59 10/25/18 08:41 Lacosamide (Vimpat) 200 mg BID ORAL 10/24/18 09:00 11/23/18 08:59 10/25/18 08:31 Magnesium Hydroxide (Mom) 30 ml DAILYPRN PRN ORAL Constipation 10/24/18 19:15 11/23/18 19:14 Morphine Sulfate (Morphine Sulfate) 1 mg Q3H PRN IVP Pain scale 1-3 10/24/18 19:15 10/31/18 19:14 Morphine Sulfate (Morphine Sulfate) 2 mg Q3H PRN IVP Moderate Pain (Pain Scale 4-6) 10/24/18 19:15 10/31/18 19:14 Ondansetron HCl (Zofran) 4 mg EVERY 4 HOURS PRN IVP Nausea & Vomiting 10/23/18 22:45 11/22/18 22:44 Ondansetron HCl (Zofran) 4 mg Q6H PRN IVP Nausea & Vomiting 10/24/18 19:15 11/23/18 19:14 Temazepam (Restoril) 7.5 mg DAILY PRN ORAL Insomnia 10/24/18 19:15 10/31/18 19:14 Allergies: Coded Allergies: OPIOIDS - MORPHINE ANALOGUES (Verified Adverse Reaction, Intermediate, Altered Mental Status, 10/23/18) Subjective Awake, alert, responsive, complaining but less left hip pain. Objective Last Vital Signs Date Time Temp Pulse Resp B/P (MAP) Pulse Ox O2 Delivery O2 Flow Rate FiO2 10/25/18 12:00 97.3 84 18 112/73 (86) 98 10/25/18 09:00 Room Air 10/24/18 21:45 3 Laboratory Tests Test 10/25/18 05:00 10/25/18 06:18 Urine Color Pale yellow Urine Appearance Clear Urine pH 5 (4.5-8.0) Urine Specific [place] 1.020 (1.005-1.035) Urine Protein 1+ (NEGATIVE) H Urine Glucose (UA) Negative (NEGATIVE) Urine Ketones Negative (NEGATIVE) Urine Blood 1+ (NEGATIVE) H Urine Nitrite Negative (NEGATIVE) Urine Bilirubin Negative (NEGATIVE) Urine Urobilinogen Normal MG/DL (0.0-1.0) Urine Leukocyte Esterase Negative (NEGATIVE) Urine RBC 2-4 /HPF (0 - 2) H Urine WBC 0-2 /HPF (0 - 2) Urine Squamous Epithelial Cells Few /LPF (NONE/OCC) Urine Bacteria Few /HPF (NONE) Urine Osmolality 443 mOsm/kg (429-449) Urine Random Sodium 59 mmol/L (20-110) White Blood Count 9.4 K/UL (4.8-10.8) Red Blood Count 4.25 M/UL (4.20-5.40) Hemoglobin 12.1 G/DL (12.0-16.0) Hematocrit 38.4 % (37.0-47.0) Mean Corpuscular Volume 90 FL (80-99) Mean Corpuscular Hemoglobin 28.5 PG (27.0-31.0) Mean Corpuscular Hemoglobin Concent 31.7 G/DL (32.0-36.0) L Red Cell Distribution Width 13.1 % (11.6-14.8) Platelet Count 245 K/UL (150-450) Mean Platelet Volume 5.7 FL (6.5-10.1) L Neutrophils (%) (Auto) 72.4 % (45.0-75.0) Lymphocytes (%) (Auto) 12.4 % (20.0-45.0) L Monocytes (%) (Auto) 13.9 % (1.0-10.0) H Eosinophils (%) (Auto) 0.2 % (0.0-3.0) Basophils (%) (Auto) 1.1 % (0.0-2.0) Sodium Level 136 MMOL/L (136-145) Potassium Level 4.2 MMOL/L (3.5-5.1) Chloride Level 101 MMOL/L (98-107) Carbon Dioxide Level 26 MMOL/L (21-32) Anion Gap 10 mmol/L (5-15) Blood Urea Nitrogen 20 mg/dL (7-18) H Creatinine 1.1 MG/DL (0.55-1.30) Estimat Glomerular Filtration Rate mL/min (>60) Glucose Level 135 MG/DL (74-106) H Calcium Level 9.2 MG/DL (8.5-10.1) Phosphorus Level 3.1 MG/DL (2.5-4.9) Magnesium Level 2.0 MG/DL (1.8-2.4) Total Bilirubin 0.4 MG/DL (0.2-1.0) Aspartate Amino Transf (AST/SGOT) 25 U/L (15-37) Alanine Aminotransferase (ALT/SGPT) 22 U/L (12-78) Alkaline Phosphatase 73 U/L (46-116) Total Protein 6.6 G/DL (6.4-8.2) Albumin 2.8 G/DL (3.4-5.0) L Globulin 3.8 g/dL Albumin/Globulin Ratio 0.7 (1.0-2.7) L Microbiology Date/Time Source Procedure Growth Status 10/24/18 05:00 Rectum VRE Culture Pending Resulted 10/24/18 05:00 Rectum - Final Resulted Intake and Output 10/24/18 10/25/18 19:00 07:00 Intake Total 850 ml 520 ml Output Total 200 ml Balance 850 ml 320 ml Intake Oral 100 ml 0 ml IV Total 750 ml 400 ml Other 120 ml Output Urine Total 200 ml # Voids 4 Objective General: No acute distress, awake and alert HEENT: NCAT, sclera anicteric, PERRL, EOMI. right eye opacity was noted. Neck: Supple, no significant jugular venous distention, Lungs: Good inspiratory effort,clear to auscultation bilaterally, no Wheeze or Rales. Heart: Regular rate and rhythm, normal S1/S2, no murmur. Abdomen: soft, nontender, nondistended. Normoactive bowel sounds. ; Yarbrough catheter. Extremities: No Cyanosis , clubbing or edema. Left femur surgical incision intact. Neuro: A&O x 3, Able to move all extremities Skin: warm, no rash. Psych: Normal mood and affect Assessment/Plan Assessment/Plan 1. Fracture of the left femoral neck s/p left femur ORIF (10/24/2018) 2. Hypertension. 3. History of seizure disorder. TREATMENT: 1. Orthopedic consultation with Dr. Kamlesh Moses. 2. Hypertension. Continue Norvasc as above. 3. Seizure disorder. Continue Vimpat as above. DVT prophylaxis with heparin subcu Consider discharge planning for nursing facility Monitor laboratory in the morning Pain control. CODE STATUS is full code. Gordon العلي MD Oct 25, 2018 16:09
--- NOTE | 2018-10-25 16:35 | NUR ---
NURSE NOTES: Spoke to Dr. Moses regarding abduction pillow. Per : patient doesn't need abduction pillow. Order noted and carried out.
--- NOTE | 2018-10-25 19:45 | NUR ---
HAND-OFF: Report given to Kortney TAMAYO. Patient in stable condition.
--- NOTE | 2018-10-25 20:30 | Consultation ---
DATE OF CONSULTATION: 10/25/2018 CONSULTING PHYSICIAN: Adrienne Beavers M.D. REASON FOR CONSULTATION: Pressure ulcer prevention and skin check. HISTORY OF PRESENT ILLNESS: This is an 82-year-old female, who sustained a left hip fracture. She had a surgical repair of her hip fracture. REVIEW OF SYSTEMS: I obtained this from her son, who was in the room.CONSTITUTIONAL: The patient has no recent weight loss, weight gain, fevers or chills. HEENT: The patient has no ear or throat pain or headache. CARDIOVASCULAR: The patient has no chest pain or palpitations. CHEST: The patient has no shortness of breath. ABDOMEN: The patient has no nausea, vomiting, diarrhea, or constipation. NEUROMUSCULAR: The patient has hip pain. PAST MEDICAL HISTORY: Hypertension. PAST SURGICAL HISTORY: Hip fracture repair. MEDICATIONS: Norvasc, Vimpat, Celebrex, and temazepam. PHYSICAL EXAMINATION: VITAL SIGNS: The patient is afebrile with stable vitals. GENERAL: She is a well-developed and well-nourished female, in no acute distress. She is alert and oriented. HEENT: Extraocular movements are intact. ABDOMEN: Soft, nontender, and nondistended. EXTREMITIES: The patient does have pain on the left hip. She has limited range of motion because of the left hip. ASSESSMENT: This is an 82-year-old woman who recently had a surgical repair of her left hip fracture. RECOMMENDATIONS: 1. Because the patient currently has limited range of motion, I recommend turning and repositioning every two hours. Also please float the heels and provide heel protectors as the patient does have limited range of motion of her legs. Apply barrier cream for buttocks. 2. Monitor and manage friction/shear and perform skin check. 3. Please assess condition of the mattress and pressure reduction surfaces. 4. Please keep linens dry and wrinkle free. 5. Please moisturize skin daily and monitor labs. 6. Nutritional consult to ensure adequate nutritional needs and monitor labs. Adrienne Beavers M.D. DR: JOSE F JOB#: [id number] CC: TOMAS
[2018-10-26] VITALS: BP 137/84
[2018-10-26] MEDS: D5 1/2NS w/KCl 20mEq 1,000 ML IV SCH ×2 (01:07→13:36)
[2018-10-26 04:00] VITALS: BP 129/81
--- NOTE | 2018-10-26 06:50 | NUR ---
NURSE NOTES: D/C fernandez catheter Per MD order.
--- NOTE | 2018-10-26 07:30 | NUR ---
NURSE NOTES: IV infiltrated, pt refused to have another IV insertion, son and daughter at bedside. Addendum: 10/26/18 at 0755 by CHANTEL WILKERSON RN Dr Harris aware and order to D/C IV.
--- NOTE | 2018-10-26 07:59 | NUR ---
HAND-OFF: Report given to charge nurse Amy.
[2018-10-26 08:00] VITALS: BP 128/77
[2018-10-26] MEDS: Heparin 5000 units/ml inj SUBQ SCH ×2 (09:22→20:48)
[2018-10-26] MEDS: Lacosamide 50mg tablet ORAL SCH ×2 (09:23→17:43)
[2018-10-26] MEDS: celeBREX 200mg Cap **SURGERY PATIENTS ONLY ORAL SCH (09:23)
[2018-10-26] MEDS: Docusate 100mg cap ORAL SCH ×3 (09:23→17:43)
--- NOTE | 2018-10-26 10:45 | NUR ---
NURSE NOTES: Patient is in bed awake and able to verbalize needs. Stable with no s/s acute distress. Denies pain at this time. Family is bedside. Plan of care discussed with patient and family. Patient is comfortable in bed with call light within reach. Will continue to monitor.
[2018-10-26 12:00] VITALS: BP 117/73
[2018-10-26 16:00] VITALS: BP 110/68
--- NOTE | 2018-10-26 16:47 | Internal Med Progress Note ---
Subjective Date of Service: Oct 26, 2018 Physician Name Trent Alcantara Attending Physician Gordon العلي MD Current Medications Medications (Trade) Dose Ordered Sig/Brynn Route PRN Reason Start Time Stop Time Status Last Admin Dose Admin Acetaminophen (Tylenol) 650 mg Q6H PRN ORAL Mild Pain/Temp > 100.5 10/23/18 22:45 11/22/18 22:44 Acetaminophen/ Hydrocodone Bitart ([place] 5/325) 2 tab Q6H PRN ORAL Severe Pain (Pain Scale 7-10) 10/24/18 19:15 10/31/18 19:14 10/25/18 10:19 Acetaminophen/ Hydrocodone Bitart ([place] 7.5/325) 1 tab Q4H PRN ORAL Moderate Pain (Pain Scale 4-6) 10/24/18 19:15 10/31/18 19:14 Amlodipine Besylate (Norvasc) 10 mg DAILY ORAL 10/24/18 09:00 11/23/18 08:59 10/25/18 08:28 Celecoxib (CeleBREX) 200 mg DAILY ORAL 10/25/18 09:00 11/24/18 08:59 10/26/18 09:23 Docusate Sodium (Colace) 100 mg THREE TIMES A DAY ORAL 10/25/18 09:00 11/24/18 08:59 10/26/18 13:36 Heparin Sodium (Porcine) (Heparin 5000 units/ml) 5,000 units EVERY 12 HOURS SUBQ 10/24/18 09:00 11/22/18 08:59 10/26/18 09:22 Lacosamide (Vimpat) 200 mg BID ORAL 10/24/18 09:00 11/23/18 08:59 10/26/18 09:23 Magnesium Hydroxide (Mom) 30 ml DAILYPRN PRN ORAL Constipation 10/24/18 19:15 11/23/18 19:14 Morphine Sulfate (Morphine Sulfate) 1 mg Q3H PRN IVP Pain scale 1-3 10/24/18 19:15 10/31/18 19:14 Morphine Sulfate (Morphine Sulfate) 2 mg Q3H PRN IVP Moderate Pain (Pain Scale 4-6) 10/24/18 19:15 10/31/18 19:14 Ondansetron HCl (Zofran) 4 mg EVERY 4 HOURS PRN IVP Nausea & Vomiting 10/23/18 22:45 11/22/18 22:44 Ondansetron HCl (Zofran) 4 mg Q6H PRN IVP Nausea & Vomiting 10/24/18 19:15 11/23/18 19:14 Temazepam (Restoril) 7.5 mg DAILY PRN ORAL Insomnia 10/24/18 19:15 10/31/18 19:14 Allergies: Coded Allergies: OPIOIDS - MORPHINE ANALOGUES (Verified Adverse Reaction, Intermediate, Altered Mental Status, 10/23/18) ROS Limited/Unobtainable: No Constitutional: Reports: no symptoms HEENT: Reports: no symptoms Cardiovascular: Reports: no symptoms Respiratory: Reports: no symptoms Gastrointestinal/Abdominal: Reports: no symptoms Genitourinary: Reports: no symptoms Neurologic/Psychiatric: Reports: no symptoms Subjective 82 YO F admitted with left femur neck fracture. S/P left hip hemiarthroplasty . Cover for Int Med-Dr العلي Objective Last Vital Signs Date Time Temp Pulse Resp B/P (MAP) Pulse Ox O2 Delivery O2 Flow Rate FiO2 10/26/18 12:00 98.2 91 20 117/73 (88) 98 10/26/18 06:47 Room Air 10/24/18 21:45 3 Microbiology Date/Time Source Procedure Growth Status 10/24/18 05:00 Nasal Nares Left MRSA Culture - Final NO METHICILLIN RESISTANT STAPH AUREUS... Complete 10/24/18 05:00 Rectum - Final NO CARBAPENEM-RESISTANT ENTEROBACTERI... Complete 10/24/18 05:00 Rectum VRE Culture - Final NO VANCOMYCIN RESISTANT ENTEROCOCCUS ... Complete 10/24/18 05:00 Rectum - Final Complete Intake and Output 10/25/18 10/26/18 19:00 07:00 Intake Total 315 ml 750 ml Output Total 400 ml 700 ml Balance -85 ml 50 ml Intake Oral 240 ml IV Total 75 ml 750 ml Output Urine Total 400 ml 700 ml Objective Objective General: No acute distress, awake and alert HEENT: NCAT, sclera anicteric, PERRL, EOMI. right eye opacity was noted. Neck: Supple, no significant jugular venous distention, Lungs: Good inspiratory effort,clear to auscultation bilaterally, no Wheeze or Rales. Heart: Regular rate and rhythm, normal S1/S2, no murmur. Abdomen: soft, nontender, nondistended. Normoactive bowel sounds. ; Yarbrough catheter. Extremities: No Cyanosis , clubbing or edema. Left femur surgical incision intact. Neuro: A&O x 3, Able to move all extremities Skin: warm, no rash. Psych: Normal mood and affect Assessment/Plan Problem List: (1) Displaced fracture of left femoral neck Assessment & Plan: S/P left hip hemiarthroplasty 10/24/18-see ortho note. (2) Hypertension Assessment & Plan: Continue norvasc (3) Seizure disorder Assessment & Plan: Continue vimpat Status: progressing Trent Alcantara MD Oct 26, 2018 16:47
--- NOTE | 2018-10-26 19:40 | NUR ---
NURSE NOTES: Received patient awake in bed, c/o stomach pain but refuses pain med or help to bedside commode. Family at the bedside. No IV site, MD aware. Bed on lowest position, call light within reach, 2 side rails up.
[2018-10-26 20:00] VITALS: BP 113/72
--- NOTE | 2018-10-26 20:02 | NUR ---
HAND-OFF: Report given to Wendi TAMAYO. Patient is stable.
--- NOTE | 2018-10-26 20:07 | Cardiac Electrophysiology PN ---
Assessment/Plan Assessment/Plan 1. Left hip fracture after a mechanical fall. There is no evidence of syncope. The patient denies any prior myocardial infarction, coronary artery disease or congestive heart failure. The patient's blood pressure is stable off antihypertensive agents. Her echocardiogram also showed normal left ventricular systolic function with ejection fraction of 60%. S/P left hip surgery 2. Questionable history of hypertension. On Norvasc 10 mg daily. Subjective Subjective S/P Left hip ORIF. Hip pain beter. No CP or SOB Objective Last 24 Hour Vital Signs Date Time Temp Pulse Resp B/P (MAP) Pulse Ox O2 Delivery O2 Flow Rate FiO2 10/26/18 16:00 98.1 88 19 110/68 (82) 99 10/26/18 12:00 98.2 91 20 117/73 (88) 98 10/26/18 09:00 100 128/77 10/26/18 08:00 99.4 100 19 128/77 (94) 98 10/26/18 06:47 Room Air 10/26/18 04:00 99.3 92 20 129/81 (97) 97 10/26/18 00:00 98.5 96 20 137/84 (101) 97 10/25/18 21:00 Room Air Intake and Output 10/25/18 10/26/18 19:00 07:00 Intake Total 315 ml 750 ml Output Total 400 ml 700 ml Balance -85 ml 50 ml Intake Oral 240 ml IV Total 75 ml 750 ml Output Urine Total 400 ml 700 ml Microbiology Date/Time Source Procedure Growth Status 10/24/18 05:00 Nasal Nares Left MRSA Culture - Final NO METHICILLIN RESISTANT STAPH AUREUS... Complete 10/24/18 05:00 Rectum - Final NO CARBAPENEM-RESISTANT ENTEROBACTERI... Complete 10/24/18 05:00 Rectum VRE Culture - Final NO VANCOMYCIN RESISTANT ENTEROCOCCUS ... Complete 10/24/18 05:00 Rectum - Final Complete Objective HEAD AND NECK: No JVD LUNGS: Clear. CARDIOVASCULAR: Regular S1 and S2 with no gallop or murmur. ABDOMEN: Soft. EXTREMITIES: No pitting edema. Daniel Aguilar MD Oct 26, 2018 20:07
[2018-10-27] VITALS: BP 127/78
[2018-10-27] MEDS: Norco 5mg/325mg tab ORAL PRN (02:08)
[2018-10-27 04:05] VITALS: BP 121/76
[2018-10-27 07:47] LABS: BASOPHILS % (AUTO) 1.7 % (0.0-2.0); HEMOGLOBIN 10.7 G/DL (12.0-16.0); LYMPHOCYTES % (AUTO) 18.8 % (20.0-45.0); MEAN CORPUSCULAR VOLUME 90 FL (80-99); MONOCYTES % (AUTO) 11.1 % (1.0-10.0); NEUTROPHILS % (AUTO) 67.5 % (45.0-75.0); PLATELET COUNT 265 K/UL (150-450); RED BLOOD COUNT 3.76 M/UL (4.20-5.40); RED CELL DISTRIBUTION WIDTH 12.8 % (11.6-14.8); WHITE BLOOD COUNT 10.4 K/UL (4.8-10.8)
--- NOTE | 2018-10-27 08:00 | NUR ---
HAND-OFF: Report given to RONI Duncan.
--- NOTE | 2018-10-27 08:00 | NUR ---
NURSE NOTES: Received patient A/A/Ox3, able to make things known. No acute resp distress noted. IS @ bedside utilize while awake. ice pack applied on left hip. drsg is intact and dry. patient able to turn with assist. left arm brace applied. SCD's are inplaced and elevated. HOB elevated for alleviation. siderails are padded for seizure disorder. bed in the lowest position. call light is within reach. will cont to monitor.
[2018-10-27 08:14] VITALS: BP 127/68
[2018-10-27 08:21] LABS: ANION GAP 9 mmol/L (5-15); BLOOD UREA NITROGEN 29 mg/dL (7-18); CALCIUM 9.4 MG/DL (8.5-10.1); CARBON DIOXIDE 25 MMOL/L (21-32); CHLORIDE 101 MMOL/L (98-107); CREATININE 1.2 MG/DL (0.55-1.30); POTASSIUM 4.6 MMOL/L (3.5-5.1); SODIUM 135 MMOL/L (136-145)
[2018-10-27] MEDS: Docusate 100mg cap ORAL SCH ×3 (08:32→17:20)
[2018-10-27] MEDS: Lacosamide 50mg tablet ORAL SCH ×2 (08:33→17:20)
[2018-10-27] MEDS: celeBREX 200mg Cap **SURGERY PATIENTS ONLY ORAL SCH (08:33)
[2018-10-27] MEDS: Heparin 5000 units/ml inj SUBQ SCH ×2 (08:35→21:34)
[2018-10-27 12:00] VITALS: BP 122/73
--- NOTE | 2018-10-27 13:50 | NUR ---
NURSE NOTES: patient tolerating food well. will cont to monitor.
--- NOTE | 2018-10-27 13:51 | NUR ---
CASE MANAGEMENT: REVIEW 10/27/2018 SI: LEFT HIP FRACTURE T 97.8 HR 101 RR 18 B/P 122/73 SATS 100% ON RA NA 135 BUN 29 IS: VIMPAT PO BID NORVASC PO QD : MED/SURG STATUS 3 EAST
--- NOTE | 2018-10-27 15:17 | Pulmonology Progress Note ---
Assessment/Plan Problems: (1) Hip fracture, left (2) History of hypertension (3) Hyponatremia Assessment/Plan tolerated surgery very well pain management dvt prohylaxis watch BP doing better symptomatic treatment Subjective ROS Limited/Unobtainable: No Interval Events: late note for 10/26, doing better Allergies: Coded Allergies: OPIOIDS - MORPHINE ANALOGUES (Verified Adverse Reaction, Intermediate, Altered Mental Status, 10/23/18) Objective Last 24 Hour Vital Signs Date Time Temp Pulse Resp B/P (MAP) Pulse Ox O2 Delivery O2 Flow Rate FiO2 10/27/18 12:00 97.8 101 18 122/73 (89) 100 10/27/18 09:00 Room Air 10/27/18 08:33 90 127/68 10/27/18 08:14 99.0 90 18 127/68 (87) 98 10/27/18 04:05 97.3 88 22 121/76 (91) 96 10/27/18 00:00 98.0 89 20 127/78 (94) 97 10/26/18 21:00 Room Air 10/26/18 20:00 97.9 95 20 113/72 (86) 98 10/26/18 16:00 98.1 88 19 110/68 (82) 99 Intake and Output 10/26/18 10/27/18 19:00 07:00 Intake Total 260 ml 250 ml Balance 260 ml 250 ml Intake Oral 260 ml 250 ml # Voids 1 2 Objective General Appearance: WD/WN HEENT: normocephalic, atraumatic Respiratory/Chest: chest wall non-tender, lungs clear Breasts: no masses Cardiovascular: normal peripheral pulses Abdomen: normal bowel sounds, no organomegaly Genitourinary: normal external genitalia Skin: no lesions Laboratory Tests 10/27/18 05:15: White Blood Count 10.4, Red Blood Count 3.76L, Hemoglobin 10.7L, Hematocrit 34.0L, Mean Corpuscular Volume 90, Mean Corpuscular Hemoglobin 28.5, Mean Corpuscular Hemoglobin Concent 31.5L, Red Cell Distribution Width 12.8, Platelet Count 265, Mean Platelet Volume 6.2L, Neutrophils (%) (Auto) 67.5, Lymphocytes (%) (Auto) 18.8L, Monocytes (%) (Auto) 11.1H, Eosinophils (%) (Auto ) 1.0, Basophils (%) (Auto) 1.7, Sodium Level 135L, Potassium Level 4.6, Chloride Level 101, Carbon Dioxide Level 25, Anion Gap 9, Blood Urea Nitrogen 29H, Creatinine 1.2, Estimat Glomerular Filtration Rate , Glucose Level 94, Calcium Level 9.4 Current Medications Medications (Trade) Dose Ordered Sig/Brynn Route PRN Reason Start Time Stop Time Status Last Admin Dose Admin Acetaminophen (Tylenol) 650 mg Q6H PRN ORAL Mild Pain/Temp > 100.5 10/23/18 22:45 11/22/18 22:44 Acetaminophen/ Hydrocodone Bitart ([place] 5/325) 2 tab Q6H PRN ORAL Severe Pain (Pain Scale 7-10) 10/24/18 19:15 10/31/18 19:14 10/27/18 02:08 Acetaminophen/ Hydrocodone Bitart ([place] 7.5/325) 1 tab Q4H PRN ORAL Moderate Pain (Pain Scale 4-6) 10/24/18 19:15 10/31/18 19:14 Amlodipine Besylate (Norvasc) 10 mg DAILY ORAL 10/24/18 09:00 11/23/18 08:59 10/27/18 08:33 Celecoxib (CeleBREX) 200 mg DAILY ORAL 10/25/18 09:00 11/24/18 08:59 10/27/18 08:33 Docusate Sodium (Colace) 100 mg THREE TIMES A DAY ORAL 10/25/18 09:00 11/24/18 08:59 10/27/18 13:33 Heparin Sodium (Porcine) (Heparin 5000 units/ml) 5,000 units EVERY 12 HOURS SUBQ 10/24/18 09:00 11/22/18 08:59 10/27/18 08:35 Lacosamide (Vimpat) 200 mg BID ORAL 10/24/18 09:00 11/23/18 08:59 10/27/18 08:33 Magnesium Hydroxide (Mom) 30 ml DAILYPRN PRN ORAL Constipation 10/24/18 19:15 11/23/18 19:14 Morphine Sulfate (Morphine Sulfate) 1 mg Q3H PRN IVP Pain scale 1-3 10/24/18 19:15 10/31/18 19:14 Morphine Sulfate (Morphine Sulfate) 2 mg Q3H PRN IVP Moderate Pain (Pain Scale 4-6) 10/24/18 19:15 10/31/18 19:14 Ondansetron HCl (Zofran) 4 mg EVERY 4 HOURS PRN IVP Nausea & Vomiting 10/23/18 22:45 11/22/18 22:44 Ondansetron HCl (Zofran) 4 mg Q6H PRN IVP Nausea & Vomiting 10/24/18 19:15 11/23/18 19:14 Temazepam (Restoril) 7.5 mg DAILY PRN ORAL Insomnia 10/24/18 19:15 10/31/18 19:14 Edd Harris MD Oct 27, 2018 15:17
--- NOTE | 2018-10-27 15:18 | Pulmonology Progress Note ---
Assessment/Plan Problems: (1) Hip fracture, left (2) History of hypertension (3) Hyponatremia Assessment/Plan tolerated surgery very well pain management dvt prohylaxis watch BP doing better symptomatic treatment dc planning in progress d/w daughter at the bed site Subjective ROS Limited/Unobtainable: No Interval Events: more awake Allergies: Coded Allergies: OPIOIDS - MORPHINE ANALOGUES (Verified Adverse Reaction, Intermediate, Altered Mental Status, 10/23/18) Objective Last 24 Hour Vital Signs Date Time Temp Pulse Resp B/P (MAP) Pulse Ox O2 Delivery O2 Flow Rate FiO2 10/27/18 12:00 97.8 101 18 122/73 (89) 100 10/27/18 09:00 Room Air 10/27/18 08:33 90 127/68 10/27/18 08:14 99.0 90 18 127/68 (87) 98 10/27/18 04:05 97.3 88 22 121/76 (91) 96 10/27/18 00:00 98.0 89 20 127/78 (94) 97 10/26/18 21:00 Room Air 10/26/18 20:00 97.9 95 20 113/72 (86) 98 10/26/18 16:00 98.1 88 19 110/68 (82) 99 Intake and Output 10/26/18 10/27/18 19:00 07:00 Intake Total 260 ml 250 ml Balance 260 ml 250 ml Intake Oral 260 ml 250 ml # Voids 1 2 Objective General Appearance: WD/WN HEENT: normocephalic, atraumatic Respiratory/Chest: chest wall non-tender, lungs clear Breasts: no masses Cardiovascular: normal peripheral pulses Abdomen: normal bowel sounds, no organomegaly Genitourinary: normal external genitalia Skin: no lesions Laboratory Tests 10/27/18 05:15: White Blood Count 10.4, Red Blood Count 3.76L, Hemoglobin 10.7L, Hematocrit 34.0L, Mean Corpuscular Volume 90, Mean Corpuscular Hemoglobin 28.5, Mean Corpuscular Hemoglobin Concent 31.5L, Red Cell Distribution Width 12.8, Platelet Count 265, Mean Platelet Volume 6.2L, Neutrophils (%) (Auto) 67.5, Lymphocytes (%) (Auto) 18.8L, Monocytes (%) (Auto) 11.1H, Eosinophils (%) (Auto ) 1.0, Basophils (%) (Auto) 1.7, Sodium Level 135L, Potassium Level 4.6, Chloride Level 101, Carbon Dioxide Level 25, Anion Gap 9, Blood Urea Nitrogen 29H, Creatinine 1.2, Estimat Glomerular Filtration Rate , Glucose Level 94, Calcium Level 9.4 Current Medications Medications (Trade) Dose Ordered Sig/Brynn Route PRN Reason Start Time Stop Time Status Last Admin Dose Admin Acetaminophen (Tylenol) 650 mg Q6H PRN ORAL Mild Pain/Temp > 100.5 10/23/18 22:45 11/22/18 22:44 Acetaminophen/ Hydrocodone Bitart ([place] 5/325) 2 tab Q6H PRN ORAL Severe Pain (Pain Scale 7-10) 10/24/18 19:15 10/31/18 19:14 10/27/18 02:08 Acetaminophen/ Hydrocodone Bitart ([place] 7.5/325) 1 tab Q4H PRN ORAL Moderate Pain (Pain Scale 4-6) 10/24/18 19:15 10/31/18 19:14 Amlodipine Besylate (Norvasc) 10 mg DAILY ORAL 10/24/18 09:00 11/23/18 08:59 10/27/18 08:33 Celecoxib (CeleBREX) 200 mg DAILY ORAL 10/25/18 09:00 11/24/18 08:59 10/27/18 08:33 Docusate Sodium (Colace) 100 mg THREE TIMES A DAY ORAL 10/25/18 09:00 11/24/18 08:59 10/27/18 13:33 Heparin Sodium (Porcine) (Heparin 5000 units/ml) 5,000 units EVERY 12 HOURS SUBQ 10/24/18 09:00 11/22/18 08:59 10/27/18 08:35 Lacosamide (Vimpat) 200 mg BID ORAL 10/24/18 09:00 11/23/18 08:59 10/27/18 08:33 Magnesium Hydroxide (Mom) 30 ml DAILYPRN PRN ORAL Constipation 10/24/18 19:15 11/23/18 19:14 Morphine Sulfate (Morphine Sulfate) 1 mg Q3H PRN IVP Pain scale 1-3 10/24/18 19:15 10/31/18 19:14 Morphine Sulfate (Morphine Sulfate) 2 mg Q3H PRN IVP Moderate Pain (Pain Scale 4-6) 10/24/18 19:15 10/31/18 19:14 Ondansetron HCl (Zofran) 4 mg EVERY 4 HOURS PRN IVP Nausea & Vomiting 10/23/18 22:45 11/22/18 22:44 Ondansetron HCl (Zofran) 4 mg Q6H PRN IVP Nausea & Vomiting 10/24/18 19:15 11/23/18 19:14 Temazepam (Restoril) 7.5 mg DAILY PRN ORAL Insomnia 10/24/18 19:15 10/31/18 19:14 Edd Harris MD Oct 27, 2018 15:18
[2018-10-27 16:00] VITALS: BP 112/70
--- NOTE | 2018-10-27 17:30 | Internal Med Progress Note ---
Subjective Date of Service: Oct 27, 2018 Physician Name Trent Alcantara Attending Physician Gordon العلي MD Current Medications Medications (Trade) Dose Ordered Sig/Brynn Route PRN Reason Start Time Stop Time Status Last Admin Dose Admin Acetaminophen (Tylenol) 650 mg Q6H PRN ORAL Mild Pain/Temp > 100.5 10/23/18 22:45 11/22/18 22:44 Acetaminophen/ Hydrocodone Bitart ([place] 5/325) 2 tab Q6H PRN ORAL Severe Pain (Pain Scale 7-10) 10/24/18 19:15 10/31/18 19:14 10/27/18 02:08 Acetaminophen/ Hydrocodone Bitart ([place] 7.5/325) 1 tab Q4H PRN ORAL Moderate Pain (Pain Scale 4-6) 10/24/18 19:15 10/31/18 19:14 Amlodipine Besylate (Norvasc) 10 mg DAILY ORAL 10/24/18 09:00 11/23/18 08:59 10/27/18 08:33 Celecoxib (CeleBREX) 200 mg DAILY ORAL 10/25/18 09:00 11/24/18 08:59 10/27/18 08:33 Docusate Sodium (Colace) 100 mg THREE TIMES A DAY ORAL 10/25/18 09:00 11/24/18 08:59 10/27/18 17:20 Heparin Sodium (Porcine) (Heparin 5000 units/ml) 5,000 units EVERY 12 HOURS SUBQ 10/24/18 09:00 11/22/18 08:59 10/27/18 08:35 Lacosamide (Vimpat) 200 mg BID ORAL 10/24/18 09:00 11/23/18 08:59 10/27/18 17:20 Magnesium Hydroxide (Mom) 30 ml DAILYPRN PRN ORAL Constipation 10/24/18 19:15 11/23/18 19:14 Morphine Sulfate (Morphine Sulfate) 1 mg Q3H PRN IVP Pain scale 1-3 10/24/18 19:15 10/31/18 19:14 Morphine Sulfate (Morphine Sulfate) 2 mg Q3H PRN IVP Moderate Pain (Pain Scale 4-6) 10/24/18 19:15 10/31/18 19:14 Ondansetron HCl (Zofran) 4 mg EVERY 4 HOURS PRN IVP Nausea & Vomiting 10/23/18 22:45 11/22/18 22:44 Ondansetron HCl (Zofran) 4 mg Q6H PRN IVP Nausea & Vomiting 10/24/18 19:15 11/23/18 19:14 Temazepam (Restoril) 7.5 mg DAILY PRN ORAL Insomnia 10/24/18 19:15 10/31/18 19:14 Allergies: Coded Allergies: OPIOIDS - MORPHINE ANALOGUES (Verified Adverse Reaction, Intermediate, Altered Mental Status, 10/23/18) ROS Limited/Unobtainable: No Constitutional: Reports: no symptoms HEENT: Reports: no symptoms Cardiovascular: Reports: no symptoms Respiratory: Reports: no symptoms Gastrointestinal/Abdominal: Reports: no symptoms Genitourinary: Reports: no symptoms Neurologic/Psychiatric: Reports: no symptoms Subjective 82 YO F admitted with left femur neck fracture. S/P left hip hemiarthroplasty . Cover for Int Zechariah-Dr العلي Objective Last Vital Signs Date Time Temp Pulse Resp B/P (MAP) Pulse Ox O2 Delivery O2 Flow Rate FiO2 10/27/18 16:00 98.4 94 18 112/70 (84) 100 10/27/18 09:00 Room Air 10/24/18 21:45 3 Laboratory Tests Test 10/27/18 05:15 White Blood Count 10.4 K/UL (4.8-10.8) Red Blood Count 3.76 M/UL (4.20-5.40) L Hemoglobin 10.7 G/DL (12.0-16.0) L Hematocrit 34.0 % (37.0-47.0) L Mean Corpuscular Volume 90 FL (80-99) Mean Corpuscular Hemoglobin 28.5 PG (27.0-31.0) Mean Corpuscular Hemoglobin Concent 31.5 G/DL (32.0-36.0) L Red Cell Distribution Width 12.8 % (11.6-14.8) Platelet Count 265 K/UL (150-450) Mean Platelet Volume 6.2 FL (6.5-10.1) L Neutrophils (%) (Auto) 67.5 % (45.0-75.0) Lymphocytes (%) (Auto) 18.8 % (20.0-45.0) L Monocytes (%) (Auto) 11.1 % (1.0-10.0) H Eosinophils (%) (Auto) 1.0 % (0.0-3.0) Basophils (%) (Auto) 1.7 % (0.0-2.0) Sodium Level 135 MMOL/L (136-145) L Potassium Level 4.6 MMOL/L (3.5-5.1) Chloride Level 101 MMOL/L (98-107) Carbon Dioxide Level 25 MMOL/L (21-32) Anion Gap 9 mmol/L (5-15) Blood Urea Nitrogen 29 mg/dL (7-18) H Creatinine 1.2 MG/DL (0.55-1.30) Estimat Glomerular Filtration Rate mL/min (>60) Glucose Level 94 MG/DL (74-106) Calcium Level 9.4 MG/DL (8.5-10.1) Intake and Output 10/26/18 10/27/18 19:00 07:00 Intake Total 260 ml 250 ml Balance 260 ml 250 ml Intake Oral 260 ml 250 ml # Voids 1 2 Objective Objective General: No acute distress, awake and alert HEENT: NCAT, sclera anicteric, PERRL, EOMI. right eye opacity was noted. Neck: Supple, no significant jugular venous distention, Lungs: Good inspiratory effort,clear to auscultation bilaterally, no Wheeze or Rales. Heart: Regular rate and rhythm, normal S1/S2, no murmur. Abdomen: soft, nontender, nondistended. Normoactive bowel sounds. ; Yarbrough catheter. Extremities: No Cyanosis , clubbing or edema. Left femur surgical incision intact. Neuro: A&O x 3, Able to move all extremities Skin: warm, no rash. Psych: Normal mood and affect Assessment/Plan Problem List: (1) Displaced fracture of left femoral neck Assessment & Plan: S/P left hip hemiarthroplasty 10/24/18-see ortho note. (2) Hypertension Assessment & Plan: Continue norvasc (3) Seizure disorder Assessment & Plan: Continue vimpat Assessment/Plan Discharge planning: Trent Morales MD Oct 27, 2018 17:30
--- NOTE | 2018-10-27 19:22 | NUR ---
HAND-OFF: Report given to NICCI.
--- NOTE | 2018-10-27 19:23 | NUR ---
NURSE NOTES: Received report from RONI Martinez. Patient in bed awake. Vitals stable. Respiration even and non labored on room air. No Sob noted. Bed in lowest position. Call light within reach. Will continue plan of care.
[2018-10-27 20:00] VITALS: BP 115/63
[2018-10-28] VITALS: BP 129/78
[2018-10-28 04:00] VITALS: BP 130/73
--- NOTE | 2018-10-28 05:28 | NUR ---
NURSE NOTES: Pt. refused IV insertion. Attempted x2 (2230 and 0400). Explained risk, benefits and hospital protocol, pt. still refused.
--- NOTE | 2018-10-28 07:57 | NUR ---
HAND-OFF: Report given to RONI Liu and RONI Gauthier.
--- NOTE | 2018-10-28 07:59 | NUR ---
NURSE NOTES: Received report from Jeanine TAMAYO, pt a/a/o with some confusion. pt doesn't have IV access, pt is refusing to restart a new IV per associate artistic director is aware. pt on low sodium diet/mechanical soft. call light within reach, bed in lowest position, side rales up x2. I will f/u as needed. plan: to transfer to [facility] vs [facility] once bed becomes available. Addendum: 10/28/18 at 1629 by Noe Escamilla RN RN will call pt's son at [phone] Mr. Murillo once bed becomes available.
[2018-10-28 08:00] VITALS: BP 138/77
--- NOTE | 2018-10-28 08:00 | NUR ---
Initial interaction with patient and son at shift change. Per son, patient may be discharging to [facility] soon. Son would like to be informed if Case Management finalizes discharge plan at phone number [phone] (son didn't provide first name, asked to be called "Mr. Murillo".
[2018-10-28] MEDS: celeBREX 200mg Cap **SURGERY PATIENTS ONLY ORAL SCH (09:00)
[2018-10-28] MEDS: Heparin 5000 units/ml inj SUBQ SCH ×2 (09:00→21:51)
[2018-10-28] MEDS: Lacosamide 50mg tablet ORAL SCH ×2 (09:01→18:47)
[2018-10-28] MEDS: Docusate 100mg cap ORAL SCH ×3 (09:01→18:48)
--- NOTE | 2018-10-28 10:00 | NUR ---
STATING "I WANT TO GO HOME TO SEE MY DOG" Explained that Case Management will be in contact with her regarding discharge plans. RN Noe Argueta has left message for Case Management. Physical Therapist assisting patient to ambulate out to monae and back to chair. Tolerated well, with no complaints of pain
--- NOTE | 2018-10-28 10:58 | NUR ---
REMAINS UP IN CHAIR Tolerating sitting up in chair without request to go back to bed yet. RONI Escamilla left message for Indigo Ceballos in Case Management regarding Discharge Plan
[2018-10-28 12:11] VITALS: BP 124/79
[2018-10-28 12:17] LABS: EOSINOPHILS % (AUTO) 0.7 % (0.0-3.0); HEMATOCRIT 40.1 % (37.0-47.0); HEMOGLOBIN 12.4 G/DL (12.0-16.0); LYMPHOCYTES % (AUTO) 10.9 % (20.0-45.0); MEAN CORPUSCULAR VOLUME 91 FL (80-99); MONOCYTES % (AUTO) 8.2 % (1.0-10.0); NEUTROPHILS % (AUTO) 79.2 % (45.0-75.0); PLATELET COUNT 304 K/UL (150-450); RED BLOOD COUNT 4.41 M/UL (4.20-5.40); RED CELL DISTRIBUTION WIDTH 12.9 % (11.6-14.8); WHITE BLOOD COUNT 9.3 K/UL (4.8-10.8)
[2018-10-28 12:27] LABS: ANION GAP 10 mmol/L (5-15); BLOOD UREA NITROGEN 24 mg/dL (7-18); CALCIUM 10.4 MG/DL (8.5-10.1); CARBON DIOXIDE 24 MMOL/L (21-32); CHLORIDE 100 MMOL/L (98-107); POTASSIUM 4.6 MMOL/L (3.5-5.1); SODIUM 133 MMOL/L (136-145)
--- NOTE | 2018-10-28 13:30 | NUR ---
PATIENT NOW BACK TO BED Abductor Pillow obtained for patient per [place]ish Physical Therapist's recommendation
--- NOTE | 2018-10-28 14:00 | Pulmonology Progress Note ---
Assessment/Plan Problems: (1) Hip fracture, left (2) History of hypertension (3) Hyponatremia Assessment/Plan dc planning pain management dvt prohylaxis watch BP doing better symptomatic treatment dc planning in progress going to rehab Subjective ROS Limited/Unobtainable: No Constitutional: Reports: no symptoms HEENT: Repors: no symptoms Respiratory: Reports: no symptoms Allergies: Coded Allergies: OPIOIDS - MORPHINE ANALOGUES (Verified Adverse Reaction, Intermediate, Altered Mental Status, 10/23/18) Objective Last 24 Hour Vital Signs Date Time Temp Pulse Resp B/P (MAP) Pulse Ox O2 Delivery O2 Flow Rate FiO2 10/28/18 12:11 98.0 103 18 124/79 (94) 98 10/28/18 09:01 96 138/77 10/28/18 08:00 98.4 96 18 138/77 (97) 98 10/28/18 04:00 98.4 90 18 130/73 (92) 96 10/28/18 00:00 98.2 102 18 129/78 (95) 96 10/27/18 21:00 Room Air 10/27/18 20:00 98.2 103 18 115/63 (80) 99 10/27/18 16:00 98.4 94 18 112/70 (84) 100 Intake and Output 10/27/18 10/28/18 18:59 06:59 Intake Total 600 ml 500 ml Balance 600 ml 500 ml Intake Oral 600 ml 500 ml # Voids 4 5 Objective General Appearance: WD/WN HEENT: normocephalic, atraumatic Respiratory/Chest: chest wall non-tender, lungs clear Breasts: no masses Cardiovascular: normal peripheral pulses Abdomen: normal bowel sounds, no organomegaly Genitourinary: normal external genitalia Skin: no lesions Laboratory Tests 10/28/18 12:03: White Blood Count 9.3, Red Blood Count 4.41, Hemoglobin 12.4, Hematocrit 40.1, Mean Corpuscular Volume 91, Mean Corpuscular Hemoglobin 28.1, Mean Corpuscular Hemoglobin Concent 30.9L, Red Cell Distribution Width 12.9, Platelet Count 304, Mean Platelet Volume 5.8L, Neutrophils (%) (Auto) 79.2H, Lymphocytes (%) (Auto) 10.9L, Monocytes (%) (Auto) 8.2, Eosinophils (%) (Auto) 0.7, Basophils (%) (Auto ) 1.0, Sodium Level 133L, Potassium Level 4.6, Chloride Level 100, Carbon Dioxide Level 24, Anion Gap 10, Blood Urea Nitrogen 24H, Creatinine 1.0, Estimat Glomerular Filtration Rate , Glucose Level 109H, Calcium Level 10.4H Current Medications Medications (Trade) Dose Ordered Sig/Brynn Route PRN Reason Start Time Stop Time Status Last Admin Dose Admin Acetaminophen (Tylenol) 650 mg Q6H PRN ORAL Mild Pain/Temp > 100.5 10/23/18 22:45 11/22/18 22:44 Acetaminophen/ Hydrocodone Bitart ([place] 5/325) 2 tab Q6H PRN ORAL Severe Pain (Pain Scale 7-10) 10/24/18 19:15 10/31/18 19:14 10/27/18 02:08 Acetaminophen/ Hydrocodone Bitart ([place] 7.5/325) 1 tab Q4H PRN ORAL Moderate Pain (Pain Scale 4-6) 10/24/18 19:15 10/31/18 19:14 Amlodipine Besylate (Norvasc) 10 mg DAILY ORAL 10/24/18 09:00 11/23/18 08:59 10/28/18 09:01 Celecoxib (CeleBREX) 200 mg DAILY ORAL 10/25/18 09:00 11/24/18 08:59 10/28/18 09:00 Docusate Sodium (Colace) 100 mg THREE TIMES A DAY ORAL 10/25/18 09:00 11/24/18 08:59 10/28/18 12:47 Heparin Sodium (Porcine) (Heparin 5000 units/ml) 5,000 units EVERY 12 HOURS SUBQ 10/24/18 09:00 11/22/18 08:59 10/28/18 09:00 Lacosamide (Vimpat) 200 mg BID ORAL 10/24/18 09:00 11/23/18 08:59 10/28/18 09:01 Magnesium Hydroxide (Mom) 30 ml DAILYPRN PRN ORAL Constipation 10/24/18 19:15 11/23/18 19:14 Morphine Sulfate (Morphine Sulfate) 1 mg Q3H PRN IVP Pain scale 1-3 10/24/18 19:15 10/31/18 19:14 Morphine Sulfate (Morphine Sulfate) 2 mg Q3H PRN IVP Moderate Pain (Pain Scale 4-6) 10/24/18 19:15 10/31/18 19:14 Ondansetron HCl (Zofran) 4 mg EVERY 4 HOURS PRN IVP Nausea & Vomiting 10/23/18 22:45 11/22/18 22:44 Ondansetron HCl (Zofran) 4 mg Q6H PRN IVP Nausea & Vomiting 10/24/18 19:15 11/23/18 19:14 Temazepam (Restoril) 7.5 mg DAILY PRN ORAL Insomnia 10/24/18 19:15 10/31/18 19:14 Edd Harris MD Oct 28, 2018 14:00
--- NOTE | 2018-10-28 14:44 | NUR ---
DISCHARGE PLANNING REFERRED TO RENETTA BELL T: [phone] F: [phone] AWAIT ACCEPTANCE
[2018-10-28 16:00] VITALS: BP 137/81
--- NOTE | 2018-10-28 16:31 | NUR ---
NURSE NOTES Called son upon patient's request to notify him that discharge plan is still in process.
--- NOTE | 2018-10-28 17:01 | Cardiac Electrophysiology PN ---
Assessment/Plan Assessment/Plan 1. Left hip fracture after a mechanical fall. There is no evidence of syncope. The patient denies any prior myocardial infarction, coronary artery disease or congestive heart failure. The patient's blood pressure is stable off antihypertensive agents. Her echocardiogram also showed normal left ventricular systolic function with ejection fraction of 60%. S/P left hip surgery 2. Questionable history of hypertension. On Norvasc 10 mg daily. Awaiting DC to [facility] RN Subjective Subjective Hip pain better. No CP or SOB. RN at bed nurse Objective Last 24 Hour Vital Signs Date Time Temp Pulse Resp B/P (MAP) Pulse Ox O2 Delivery O2 Flow Rate FiO2 10/28/18 16:00 98.2 109 18 137/81 (99) 98 10/28/18 12:11 98.0 103 18 124/79 (94) 98 10/28/18 09:01 96 138/77 10/28/18 09:00 Room Air 10/28/18 08:00 98.4 96 18 138/77 (97) 98 10/28/18 04:00 98.4 90 18 130/73 (92) 96 10/28/18 00:00 98.2 102 18 129/78 (95) 96 10/27/18 21:00 Room Air 10/27/18 20:00 98.2 103 18 115/63 (80) 99 Intake and Output 10/27/18 10/28/18 19:00 07:00 Intake Total 600 ml 500 ml Balance 600 ml 500 ml Intake Oral 600 ml 500 ml # Voids 4 5 Laboratory Tests Test 10/28/18 12:03 White Blood Count 9.3 K/UL (4.8-10.8) Red Blood Count 4.41 M/UL (4.20-5.40) Hemoglobin 12.4 G/DL (12.0-16.0) Hematocrit 40.1 % (37.0-47.0) Mean Corpuscular Volume 91 FL (80-99) Mean Corpuscular Hemoglobin 28.1 PG (27.0-31.0) Mean Corpuscular Hemoglobin Concent 30.9 G/DL (32.0-36.0) L Red Cell Distribution Width 12.9 % (11.6-14.8) Platelet Count 304 K/UL (150-450) Mean Platelet Volume 5.8 FL (6.5-10.1) L Neutrophils (%) (Auto) 79.2 % (45.0-75.0) H Lymphocytes (%) (Auto) 10.9 % (20.0-45.0) L Monocytes (%) (Auto) 8.2 % (1.0-10.0) Eosinophils (%) (Auto) 0.7 % (0.0-3.0) Basophils (%) (Auto) 1.0 % (0.0-2.0) Sodium Level 133 MMOL/L (136-145) L Potassium Level 4.6 MMOL/L (3.5-5.1) Chloride Level 100 MMOL/L (98-107) Carbon Dioxide Level 24 MMOL/L (21-32) Anion Gap 10 mmol/L (5-15) Blood Urea Nitrogen 24 mg/dL (7-18) H Creatinine 1.0 MG/DL (0.55-1.30) Estimat Glomerular Filtration Rate mL/min (>60) Glucose Level 109 MG/DL (74-106) H Calcium Level 10.4 MG/DL (8.5-10.1) H Objective HEAD AND NECK: No JVD LUNGS: Clear. CARDIOVASCULAR: Regular S1 and S2 with no gallop or murmur. ABDOMEN: Soft. EXTREMITIES: No pitting edema. Daniel Aguilar MD Oct 28, 2018 17:01
--- NOTE | 2018-10-28 17:05 | NUR ---
NURSE NOTE Abductor pillow in place and heels positioned off bed for pressure relief. Incontinent of urine. L hip incision without redness or drainage
--- NOTE | 2018-10-28 19:21 | Internal Med Progress Note ---
Subjective Date of Service: Oct 28, 2018 Physician Name Trent Alcantara Attending Physician Gordon العلي MD Current Medications Medications (Trade) Dose Ordered Sig/Brynn Route PRN Reason Start Time Stop Time Status Last Admin Dose Admin Acetaminophen (Tylenol) 650 mg Q6H PRN ORAL Mild Pain/Temp > 100.5 10/23/18 22:45 11/22/18 22:44 Acetaminophen/ Hydrocodone Bitart ([place] 5/325) 2 tab Q6H PRN ORAL Severe Pain (Pain Scale 7-10) 10/24/18 19:15 10/31/18 19:14 10/27/18 02:08 Acetaminophen/ Hydrocodone Bitart ([place] 7.5/325) 1 tab Q4H PRN ORAL Moderate Pain (Pain Scale 4-6) 10/24/18 19:15 10/31/18 19:14 Amlodipine Besylate (Norvasc) 10 mg DAILY ORAL 10/24/18 09:00 11/23/18 08:59 10/28/18 09:01 Celecoxib (CeleBREX) 200 mg DAILY ORAL 10/25/18 09:00 11/24/18 08:59 10/28/18 09:00 Docusate Sodium (Colace) 100 mg THREE TIMES A DAY ORAL 10/25/18 09:00 11/24/18 08:59 10/28/18 18:48 Heparin Sodium (Porcine) (Heparin 5000 units/ml) 5,000 units EVERY 12 HOURS SUBQ 10/24/18 09:00 11/22/18 08:59 10/28/18 09:00 Lacosamide (Vimpat) 200 mg BID ORAL 10/24/18 09:00 11/23/18 08:59 10/28/18 18:47 Magnesium Hydroxide (Mom) 30 ml DAILYPRN PRN ORAL Constipation 10/24/18 19:15 11/23/18 19:14 Morphine Sulfate (Morphine Sulfate) 1 mg Q3H PRN IVP Pain scale 1-3 10/24/18 19:15 10/31/18 19:14 Morphine Sulfate (Morphine Sulfate) 2 mg Q3H PRN IVP Moderate Pain (Pain Scale 4-6) 10/24/18 19:15 10/31/18 19:14 Ondansetron HCl (Zofran) 4 mg EVERY 4 HOURS PRN IVP Nausea & Vomiting 10/23/18 22:45 11/22/18 22:44 Ondansetron HCl (Zofran) 4 mg Q6H PRN IVP Nausea & Vomiting 10/24/18 19:15 11/23/18 19:14 Temazepam (Restoril) 7.5 mg DAILY PRN ORAL Insomnia 10/24/18 19:15 10/31/18 19:14 Allergies: Coded Allergies: OPIOIDS - MORPHINE ANALOGUES (Verified Adverse Reaction, Intermediate, Altered Mental Status, 10/23/18) ROS Limited/Unobtainable: No Constitutional: Reports: no symptoms HEENT: Reports: no symptoms Cardiovascular: Reports: no symptoms Respiratory: Reports: no symptoms Gastrointestinal/Abdominal: Reports: no symptoms Genitourinary: Reports: no symptoms Neurologic/Psychiatric: Reports: no symptoms Subjective 82 YO F admitted with left femur neck fracture. S/P left hip hemiarthroplasty . Cover for Int Zechariah-Dr العلي Objective Last Vital Signs Date Time Temp Pulse Resp B/P (MAP) Pulse Ox O2 Delivery O2 Flow Rate FiO2 10/28/18 16:00 98.2 109 18 137/81 (99) 98 10/28/18 09:00 Room Air 10/24/18 21:45 3 Laboratory Tests Test 10/28/18 12:03 White Blood Count 9.3 K/UL (4.8-10.8) Red Blood Count 4.41 M/UL (4.20-5.40) Hemoglobin 12.4 G/DL (12.0-16.0) Hematocrit 40.1 % (37.0-47.0) Mean Corpuscular Volume 91 FL (80-99) Mean Corpuscular Hemoglobin 28.1 PG (27.0-31.0) Mean Corpuscular Hemoglobin Concent 30.9 G/DL (32.0-36.0) L Red Cell Distribution Width 12.9 % (11.6-14.8) Platelet Count 304 K/UL (150-450) Mean Platelet Volume 5.8 FL (6.5-10.1) L Neutrophils (%) (Auto) 79.2 % (45.0-75.0) H Lymphocytes (%) (Auto) 10.9 % (20.0-45.0) L Monocytes (%) (Auto) 8.2 % (1.0-10.0) Eosinophils (%) (Auto) 0.7 % (0.0-3.0) Basophils (%) (Auto) 1.0 % (0.0-2.0) Sodium Level 133 MMOL/L (136-145) L Potassium Level 4.6 MMOL/L (3.5-5.1) Chloride Level 100 MMOL/L (98-107) Carbon Dioxide Level 24 MMOL/L (21-32) Anion Gap 10 mmol/L (5-15) Blood Urea Nitrogen 24 mg/dL (7-18) H Creatinine 1.0 MG/DL (0.55-1.30) Estimat Glomerular Filtration Rate mL/min (>60) Glucose Level 109 MG/DL (74-106) H Calcium Level 10.4 MG/DL (8.5-10.1) H Intake and Output 10/27/18 10/28/18 19:00 07:00 Intake Total 600 ml 500 ml Balance 600 ml 500 ml Intake Oral 600 ml 500 ml # Voids 4 5 Objective Objective General: No acute distress, awake and alert HEENT: NCAT, sclera anicteric, PERRL, EOMI. right eye opacity was noted. Neck: Supple, no significant jugular venous distention, Lungs: Good inspiratory effort,clear to auscultation bilaterally, no Wheeze or Rales. Heart: Regular rate and rhythm, normal S1/S2, no murmur. Abdomen: soft, nontender, nondistended. Normoactive bowel sounds. ; Yarbrough catheter. Extremities: No Cyanosis , clubbing or edema. Left femur surgical incision intact. Neuro: A&O x 3, Able to move all extremities Skin: warm, no rash. Psych: Normal mood and affect Assessment/Plan Problem List: (1) Displaced fracture of left femoral neck Assessment & Plan: S/P left hip hemiarthroplasty 10/24/18-see ortho note. (2) Hypertension Assessment & Plan: Continue norvasc (3) Seizure disorder Assessment & Plan: Continue vimpat Assessment/Plan Discharge planning: Trent Morales MD Oct 28, 2018 19:21
[2018-10-28 20:00] VITALS: BP 127/79
--- NOTE | 2018-10-28 20:12 | NUR ---
CASE MANAGEMENT: REVIEW SI: LEFT HIP FRACTURE LEFT HIP HEMIARTHROPLASTY 10/24 T 98.0 HR 109 RR 18 BP 124/79 SAT 98% ROOM AIR NA 133 BUN 24 IS: CELEBREX PO QD MORPHINE IV Q3HR PRN HEPARIN SQ Q12HR VIMPAT PO BID MED/SURG STATUS DCP: PATIENT IS FROM HOME
--- NOTE | 2018-10-28 20:25 | NUR ---
HAND-OFF: Report given to Mikki TAMAYO, pt in stable position.
--- NOTE | 2018-10-28 22:26 | NUR ---
NURSE NOTES: Patient is in bed, aox2-3. VSS, no shortness of breath. Surgical site dressing loose. Replaced with 4x4, tegaderm. Due meds given, needs attended to. Bed low, call light within reach. Son at bedside.
[2018-10-29] VITALS (7 sets, daily range): BP systolic 94–141; BP diastolic 53–120
[2018-10-29 07:47] LABS: BASOPHILS % (AUTO) 1.2 % (0.0-2.0); EOSINOPHILS % (AUTO) 2.9 % (0.0-3.0); HEMATOCRIT 37.3 % (37.0-47.0); HEMOGLOBIN 11.7 G/DL (12.0-16.0); LYMPHOCYTES % (AUTO) 30.4 % (20.0-45.0); MEAN CORPUSCULAR VOLUME 90 FL (80-99); MONOCYTES % (AUTO) 9.4 % (1.0-10.0); NEUTROPHILS % (AUTO) 56.2 % (45.0-75.0); PLATELET COUNT 341 K/UL (150-450); RED BLOOD COUNT 4.13 M/UL (4.20-5.40); RED CELL DISTRIBUTION WIDTH 13.5 % (11.6-14.8); WHITE BLOOD COUNT 8.3 K/UL (4.8-10.8)
--- NOTE | 2018-10-29 08:00 | NUR ---
NURSE NOTES: Received report from Mikki TAMAYO. pt a/a/o with episodes of confusion. pt's laying in bed with no signs of distress or other issues at this time. surgical dressing dry and intact, changed by meat soaker nurse. call light with in reach, bed in lowest position. side rales up x2. pt's son at bed side. plan to transfer to ARU once bed becomes available. I will f/u as needed.
[2018-10-29 08:09] LABS: ANION GAP 8 mmol/L (5-15); BLOOD UREA NITROGEN 22 mg/dL (7-18); CALCIUM 10.3 MG/DL (8.5-10.1); CARBON DIOXIDE 28 MMOL/L (21-32); CHLORIDE 101 MMOL/L (98-107); CREATININE 0.9 MG/DL (0.55-1.30); POTASSIUM 4.3 MMOL/L (3.5-5.1); SODIUM 137 MMOL/L (136-145)
--- NOTE | 2018-10-29 08:09 | NUR ---
HAND-OFF: Report given to RONI Omer. Patient stable.
[2018-10-29] MEDS: celeBREX 200mg Cap **SURGERY PATIENTS ONLY ORAL SCH (08:56)
[2018-10-29] MEDS: Lacosamide 50mg tablet ORAL SCH ×2 (08:56→18:55)
[2018-10-29] MEDS: Docusate 100mg cap ORAL SCH ×3 (08:57→18:54)
[2018-10-29] MEDS: Heparin 5000 units/ml inj SUBQ SCH (08:58)
--- NOTE | 2018-10-29 10:46 | NUR ---
NURSE NOTES: Surgical site without s/s of infection. Alert and Oriented. Referral in progress for discharge to [facility]. Currently ambulating with assistance of Physical Therapy and tolerating with not pain
--- NOTE | 2018-10-29 13:13 | Pulmonology Progress Note ---
Assessment/Plan Problems: (1) Hip fracture, left (2) History of hypertension (3) Hyponatremia Assessment/Plan dc planning pain management dvt prohylaxis watch BP doing better symptomatic treatment dc planning in progress going to rehab Subjective ROS Limited/Unobtainable: No Constitutional: Reports: no symptoms HEENT: Repors: no symptoms Respiratory: Reports: no symptoms Allergies: Coded Allergies: OPIOIDS - MORPHINE ANALOGUES (Verified Adverse Reaction, Intermediate, Altered Mental Status, 10/23/18) Objective Last 24 Hour Vital Signs Date Time Temp Pulse Resp B/P (MAP) Pulse Ox O2 Delivery O2 Flow Rate FiO2 10/29/18 10:27 87 141/120 10/29/18 10:00 97.9 87 22 141/120 (127) 100 10/29/18 09:05 Room Air 10/29/18 08:00 97.9 87 22 116/53 (74) 97 10/29/18 04:00 98.1 88 18 129/82 (98) 94 10/29/18 00:00 97.9 73 18 127/79 (95) 94 10/28/18 21:00 Room Air 10/28/18 20:00 98.1 93 18 127/79 (95) 98 10/28/18 16:00 98.2 109 18 137/81 (99) 98 Intake and Output 10/28/18 10/29/18 18:59 06:59 Intake Total 1500 ml Balance 1500 ml Intake Oral 1500 ml # Voids 6 4 Objective General Appearance: WD/WN HEENT: normocephalic, atraumatic Respiratory/Chest: chest wall non-tender, lungs clear Breasts: no masses Cardiovascular: normal peripheral pulses Abdomen: normal bowel sounds, no organomegaly Genitourinary: normal external genitalia Skin: no lesions Laboratory Tests 10/29/18 06:13: White Blood Count 8.3, Red Blood Count 4.13L, Hemoglobin 11.7L, Hematocrit 37.3 , Mean Corpuscular Volume 90, Mean Corpuscular Hemoglobin 28.2, Mean Corpuscular Hemoglobin Concent 31.3L, Red Cell Distribution Width 13.5, Platelet Count 341, Mean Platelet Volume 5.6L, Neutrophils (%) (Auto) 56.2, Lymphocytes (%) (Auto) 30.4, Monocytes (%) (Auto) 9.4, Eosinophils (%) (Auto) 2.9, Basophils (%) (Auto) 1.2, Sodium Level 137, Potassium Level 4.3, Chloride Level 101, Carbon Dioxide Level 28, Anion Gap 8, Blood Urea Nitrogen 22H, Creatinine 0.9, Estimat Glomerular Filtration Rate , Glucose Level 98, Calcium Level 10.3H Current Medications Medications (Trade) Dose Ordered Sig/Brynn Route PRN Reason Start Time Stop Time Status Last Admin Dose Admin Acetaminophen (Tylenol) 650 mg Q6H PRN ORAL Mild Pain/Temp > 100.5 10/23/18 22:45 11/22/18 22:44 Acetaminophen/ Hydrocodone Bitart ([place] 5/325) 2 tab Q6H PRN ORAL Severe Pain (Pain Scale 7-10) 10/24/18 19:15 10/31/18 19:14 10/27/18 02:08 Acetaminophen/ Hydrocodone Bitart ([place] 7.5/325) 1 tab Q4H PRN ORAL Moderate Pain (Pain Scale 4-6) 10/24/18 19:15 10/31/18 19:14 Amlodipine Besylate (Norvasc) 10 mg DAILY ORAL 10/24/18 09:00 11/23/18 08:59 10/29/18 10:27 Celecoxib (CeleBREX) 200 mg DAILY ORAL 10/25/18 09:00 11/24/18 08:59 10/29/18 08:56 Docusate Sodium (Colace) 100 mg THREE TIMES A DAY ORAL 10/25/18 09:00 11/24/18 08:59 10/29/18 08:57 Heparin Sodium (Porcine) (Heparin 5000 units/ml) 5,000 units EVERY 12 HOURS SUBQ 10/24/18 09:00 11/22/18 08:59 10/29/18 08:58 Lacosamide (Vimpat) 200 mg BID ORAL 10/24/18 09:00 11/23/18 08:59 10/29/18 08:56 Magnesium Hydroxide (Mom) 30 ml DAILYPRN PRN ORAL Constipation 10/24/18 19:15 11/23/18 19:14 Morphine Sulfate (Morphine Sulfate) 1 mg Q3H PRN IVP Pain scale 1-3 10/24/18 19:15 10/31/18 19:14 Morphine Sulfate (Morphine Sulfate) 2 mg Q3H PRN IVP Moderate Pain (Pain Scale 4-6) 10/24/18 19:15 10/31/18 19:14 Ondansetron HCl (Zofran) 4 mg EVERY 4 HOURS PRN IVP Nausea & Vomiting 10/23/18 22:45 11/22/18 22:44 Ondansetron HCl (Zofran) 4 mg Q6H PRN IVP Nausea & Vomiting 10/24/18 19:15 11/23/18 19:14 Temazepam (Restoril) 7.5 mg DAILY PRN ORAL Insomnia 10/24/18 19:15 10/31/18 19:14 Edd Harris MD Oct 29, 2018 13:13
--- NOTE | 2018-10-29 15:00 | NUR ---
DISCHARGE PLANNING RECEIVED CALL FROM SHARATH AT [facility]~ THEY ARE ACCEPTING PATIENT NURSE NEEDS TO CALL [phone] TO GIVE REPORT ONCE REPORT HAS BEEN GIVEN THEY WILL RELEASE TO ROOM NUMBER ONCE WE HAVE A ROOM NUMBER [facility] WILL THEN SET UP AMBULANCE TRANSPORT
--- NOTE | 2018-10-29 18:41 | Cardiac Electrophysiology PN ---
Assessment/Plan Assessment/Plan 1. Left hip fracture after a mechanical fall. No prior myocardial infarction, coronary artery disease or congestive heart failure. Her echocardiogram showed ejection fraction of 60%. S/P left hip surgery 2. Questionable history of hypertension. On Norvasc 10 mg daily. [facility] Subjective Subjective Hip pain better. No CP or SOB. going to ARU at [facility] today Objective Last 24 Hour Vital Signs Date Time Temp Pulse Resp B/P (MAP) Pulse Ox O2 Delivery O2 Flow Rate FiO2 10/29/18 16:00 98.1 93 21 94/63 (73) 100 10/29/18 12:00 98.9 100 22 112/74 (87) 99 10/29/18 10:27 87 141/120 10/29/18 10:00 97.9 87 22 141/120 (127) 100 10/29/18 09:05 Room Air 10/29/18 08:00 97.9 87 22 116/53 (74) 97 10/29/18 04:00 98.1 88 18 129/82 (98) 94 10/29/18 00:00 97.9 73 18 127/79 (95) 94 10/28/18 21:00 Room Air 10/28/18 20:00 98.1 93 18 127/79 (95) 98 Intake and Output 10/28/18 10/29/18 18:59 06:59 Intake Total 1500 ml Balance 1500 ml Intake Oral 1500 ml # Voids 6 4 Laboratory Tests Test 10/29/18 06:13 White Blood Count 8.3 K/UL (4.8-10.8) Red Blood Count 4.13 M/UL (4.20-5.40) L Hemoglobin 11.7 G/DL (12.0-16.0) L Hematocrit 37.3 % (37.0-47.0) Mean Corpuscular Volume 90 FL (80-99) Mean Corpuscular Hemoglobin 28.2 PG (27.0-31.0) Mean Corpuscular Hemoglobin Concent 31.3 G/DL (32.0-36.0) L Red Cell Distribution Width 13.5 % (11.6-14.8) Platelet Count 341 K/UL (150-450) Mean Platelet Volume 5.6 FL (6.5-10.1) L Neutrophils (%) (Auto) 56.2 % (45.0-75.0) Lymphocytes (%) (Auto) 30.4 % (20.0-45.0) Monocytes (%) (Auto) 9.4 % (1.0-10.0) Eosinophils (%) (Auto) 2.9 % (0.0-3.0) Basophils (%) (Auto) 1.2 % (0.0-2.0) Sodium Level 137 MMOL/L (136-145) Potassium Level 4.3 MMOL/L (3.5-5.1) Chloride Level 101 MMOL/L (98-107) Carbon Dioxide Level 28 MMOL/L (21-32) Anion Gap 8 mmol/L (5-15) Blood Urea Nitrogen 22 mg/dL (7-18) H Creatinine 0.9 MG/DL (0.55-1.30) Estimat Glomerular Filtration Rate mL/min (>60) Glucose Level 98 MG/DL (74-106) Calcium Level 10.3 MG/DL (8.5-10.1) H Objective HEAD AND NECK: No JVD LUNGS: Clear. CARDIOVASCULAR: Regular S1 and S2 with no gallop or murmur. ABDOMEN: Soft. EXTREMITIES: No pitting edema. Daniel Aguilar MD Oct 29, 2018 18:41
--- NOTE | 2018-10-29 19:11 | Internal Med Progress Note ---
Subjective Date of Service: Oct 29, 2018 Physician Name Trent Alcantara Attending Physician Gordon العلي MD Current Medications Medications (Trade) Dose Ordered Sig/Brynn Route PRN Reason Start Time Stop Time Status Last Admin Dose Admin Acetaminophen (Tylenol) 650 mg Q6H PRN ORAL Mild Pain/Temp > 100.5 10/23/18 22:45 11/22/18 22:44 Acetaminophen/ Hydrocodone Bitart ([place] 5/325) 2 tab Q6H PRN ORAL Severe Pain (Pain Scale 7-10) 10/24/18 19:15 10/31/18 19:14 10/27/18 02:08 Acetaminophen/ Hydrocodone Bitart ([place] 7.5/325) 1 tab Q4H PRN ORAL Moderate Pain (Pain Scale 4-6) 10/24/18 19:15 10/31/18 19:14 Amlodipine Besylate (Norvasc) 10 mg DAILY ORAL 10/24/18 09:00 11/23/18 08:59 10/29/18 10:27 Celecoxib (CeleBREX) 200 mg DAILY ORAL 10/25/18 09:00 11/24/18 08:59 10/29/18 08:56 Docusate Sodium (Colace) 100 mg THREE TIMES A DAY ORAL 10/25/18 09:00 11/24/18 08:59 10/29/18 18:54 Heparin Sodium (Porcine) (Heparin 5000 units/ml) 5,000 units EVERY 12 HOURS SUBQ 10/24/18 09:00 11/22/18 08:59 10/29/18 08:58 Lacosamide (Vimpat) 200 mg BID ORAL 10/24/18 09:00 11/23/18 08:59 10/29/18 18:55 Magnesium Hydroxide (Mom) 30 ml DAILYPRN PRN ORAL Constipation 10/24/18 19:15 11/23/18 19:14 Ondansetron HCl (Zofran) 4 mg EVERY 4 HOURS PRN IVP Nausea & Vomiting 10/23/18 22:45 11/22/18 22:44 Ondansetron HCl (Zofran) 4 mg Q6H PRN IVP Nausea & Vomiting 10/24/18 19:15 11/23/18 19:14 Temazepam (Restoril) 7.5 mg DAILY PRN ORAL Insomnia 10/24/18 19:15 10/31/18 19:14 Allergies: Coded Allergies: OPIOIDS - MORPHINE ANALOGUES (Verified Adverse Reaction, Intermediate, Altered Mental Status, 10/23/18) ROS Limited/Unobtainable: No Constitutional: Reports: no symptoms HEENT: Reports: no symptoms Cardiovascular: Reports: no symptoms Respiratory: Reports: no symptoms Gastrointestinal/Abdominal: Reports: no symptoms Genitourinary: Reports: no symptoms Neurologic/Psychiatric: Reports: no symptoms Subjective 82 YO F admitted with left femur neck fracture. S/P left hip hemiarthroplasty . Cover for Int Zechariah-Dr العلي Objective Last Vital Signs Date Time Temp Pulse Resp B/P (MAP) Pulse Ox O2 Delivery O2 Flow Rate FiO2 10/29/18 16:00 98.1 93 21 94/63 (73) 100 10/29/18 09:05 Room Air 10/24/18 21:45 3 Laboratory Tests Test 10/29/18 06:13 White Blood Count 8.3 K/UL (4.8-10.8) Red Blood Count 4.13 M/UL (4.20-5.40) L Hemoglobin 11.7 G/DL (12.0-16.0) L Hematocrit 37.3 % (37.0-47.0) Mean Corpuscular Volume 90 FL (80-99) Mean Corpuscular Hemoglobin 28.2 PG (27.0-31.0) Mean Corpuscular Hemoglobin Concent 31.3 G/DL (32.0-36.0) L Red Cell Distribution Width 13.5 % (11.6-14.8) Platelet Count 341 K/UL (150-450) Mean Platelet Volume 5.6 FL (6.5-10.1) L Neutrophils (%) (Auto) 56.2 % (45.0-75.0) Lymphocytes (%) (Auto) 30.4 % (20.0-45.0) Monocytes (%) (Auto) 9.4 % (1.0-10.0) Eosinophils (%) (Auto) 2.9 % (0.0-3.0) Basophils (%) (Auto) 1.2 % (0.0-2.0) Sodium Level 137 MMOL/L (136-145) Potassium Level 4.3 MMOL/L (3.5-5.1) Chloride Level 101 MMOL/L (98-107) Carbon Dioxide Level 28 MMOL/L (21-32) Anion Gap 8 mmol/L (5-15) Blood Urea Nitrogen 22 mg/dL (7-18) H Creatinine 0.9 MG/DL (0.55-1.30) Estimat Glomerular Filtration Rate mL/min (>60) Glucose Level 98 MG/DL (74-106) Calcium Level 10.3 MG/DL (8.5-10.1) H Intake and Output 10/28/18 10/29/18 19:00 07:00 Intake Total 1500 ml Balance 1500 ml Intake Oral 1500 ml # Voids 6 4 Objective Objective General: No acute distress, awake and alert HEENT: NCAT, sclera anicteric, PERRL, EOMI. right eye opacity was noted. Neck: Supple, no significant jugular venous distention, Lungs: Good inspiratory effort,clear to auscultation bilaterally, no Wheeze or Rales. Heart: Regular rate and rhythm, normal S1/S2, no murmur. Abdomen: soft, nontender, nondistended. Normoactive bowel sounds. ; Yarbrough catheter. Extremities: No Cyanosis , clubbing or edema. Left femur surgical incision intact. Neuro: A&O x 3, Able to move all extremities Skin: warm, no rash. Psych: Normal mood and affect Assessment/Plan Problem List: (1) Displaced fracture of left femoral neck Assessment & Plan: S/P left hip hemiarthroplasty 10/24/18-see ortho note. (2) Hypertension Assessment & Plan: Continue norvasc (3) Seizure disorder Assessment & Plan: Continue vimpat Assessment/Plan Discharge to [facility] Trent Manley MD Oct 29, 2018 19:11
--- NOTE | 2018-10-29 19:25 | NUR ---
NURSE NOTES: Received report from RONI Omer. Patient in bed, no signs of distress, No pain noted. Belongings at bedside. Family at bedside. Bed low, call light within reach
--- NOTE | 2018-10-29 19:45 | NUR ---
NURSE NOTES: Received order to transfer to [facility]. RN called for report at: [phone] s/w Sofía TAMAYO CN. she accepted pt to transfer to room 423"A". Assigned . Dr. Alcantara. Transportation arranged with [facility] [phone] to to picker tender helper at 19:00 (per facility request). RN also called pt's son at [phone] to notify of the dc plan. RN given to report ambulance crew. pt's son will have pt's belongings. [facility] Address: [address] [place] [address] (report)
--- NOTE | 2018-10-29 19:49 | NUR ---
NURSE NOTES: Patient discharged via [facility]. In stable condition. Transported via [facility] with belongings. Accompanied by family members.
--- NOTE | 2018-10-29 22:00 | Consultation ---
DATE OF CONSULTATION: 10/29/2018 PHYSICAL MEDICINE AND REHABILITATION CONSULTATION DATE OF SURGERY: 10/24/2018 CONSULTING PHYSICIAN: Geraldo Vu M.D. REFERRING PHYSICIANS: Dr. Gordon العلي/Dr. Trent Alcantara. ORTHOPEDIC SURGEON: Kamlesh Moses M.D. HEALTH INFORMATION TECHNOLOGIST: Edd Harris M.D. AMBULETTE DRIVER: Daniel Aguilar M.D. WOUND CARE: Adrienne Campo. CHIEF COMPLAINT: Difficulty with ambulation and activity of daily living, cognitive and memory impairment in a patient status post mechanical fall with left hip fracture and surgery. HISTORY OF PRESENT ILLNESS: The patient is an 82-year-old female with history of blindness, however, in a modified independent to independent level of function living at home with her children including two sons and her daughter. Apparently, she had a fall from the steps inside the house, which was witnessed by the family. Originally was taken to [facility]. X-ray revealed a left femoral neck fracture. The patient was transferred to [facility] due to insurance issues, was admitted to the hospital. The patient was taken to operation room by Dr. Kamlesh Moses, orthopedic surgeon with diagnosis of left femoral neck displaced fracture and underwent left total hip arthroplasty. Postoperatively, she has been seen and followed by multiple consultants as above. The patient has had history of seizure disorder and is on lacosamide. The patient also has had cognitive and memory impairment. The patient has had significant functional impairment, difficulty with her functionality. I was asked today to evaluate the patient for rehabilitation. The patient is awake, follows commands, however, she is not oriented to place, not oriented to year or name of President. She has a left wrist brace in place. Also dressing over the left hip postoperative in place. She has severe functional impairment. PAST MEDICAL AND SURGICAL HISTORY: 1. History of seizure disorder. 2. History of blindness at least for the past four years. 3. History of hypertension. ALLERGIES: Morphine. MEDICATIONS: Celebrex 200 mg daily, Colace 100 mg three times a day, morphine IV as needed, [place] as needed, Zofran as needed, Restoril as needed, milk of magnesia as needed, Norvasc 10 mg daily, lacosamide 200 mg twice a day, heparin subcutaneous 5000 units twice a day, Tylenol as needed, and Zofran as needed. FAMILY AND SOCIAL HISTORY: The patient lives with her family, including two sons and her daughter. She lives in a house with six steps to enter. Prior level of function apparently was independent to modified independent level of function, living with the family at home. She has remote history of tobacco, which she quit several years ago. No history of alcohol or illicit drugs. The patient apparently has not been using any assistive device prior to this incident. Family history is not clear. The patient is and she is mother of five. She used to be a teacher. Her current level of function, minimal assistance for rolling and supine to sit, maximum assistance [id number] on bed to wheelchair transfer, ambulation with front-wheeled walker, maximum assistance about 20 feet distances. REVIEW OF SYSTEMS: CONSTITUTIONAL: No chills. No fever. EYES: The patient with blindness. EAR, NOSE, AND THROAT: The patient with dysphagia, mechanical soft chopped diet. CARDIOVASCULAR: No chest pain. PULMONARY: No shortness of breath. GASTROINTESTINAL: No abdominal pain. GENITOURINARY: No report of dysuria. MUSCULOSKELETAL: Left hip pain post total hip arthroplasty, post fracture. Also, there is a left wrist splint in place. Detail is not clear. INTEGUMENTARY: No cancerous lesion. NEUROLOGIC: The patient with confusion, disorientation, and weakness. PHYSICAL EXAMINATION: VITAL SIGNS: Blood pressure 112/74, respiratory rate 20 per minute, heart rate 90 per minute, and temperature 98 degrees Fahrenheit. O2 saturation 99%. Height is 175 cm. Weight is 58 kg. Body mass index 19. GENERAL: No acute distress. HEENT: Right cornea alba, the patient is blind, unable to count my fingers even from 1 to 2 feet distances. NECK: Supple with no lymphadenopathy. HEART: Regular rhythm and rate. LUNGS: Clear to auscultation bilateral. ABDOMEN: Soft, nontender, nondistended. Normal bowel sounds with no palpable abnormal mass. EXTREMITIES: Left upper limb wrist splint in place. Left lower limb, at the left hip area dressing in place, postoperative hip fracture, total hip replacement. No calf tenderness. No clubbing or cyanosis. No pretibial edema. SKIN: No rashes. NEUROLOGIC: The patient is awake, follows commands. Unable to recall the name of place. Unable to recall the name of President. Unable to recall the year, month, and date. Movement of upper limb grossly antigravity, however, left wrist splint in place. Left lower limb movement at the proximal area limited, however, distal area antigravity. Right lower limb movement antigravity. Sensation on the wrist difficult to assess. DATA: Sodium 137, potassium 4.3, BUN 22, creatinine 0.9, glucose 98. WBC 8.3, hemoglobin 11.7, and platelets 341. ASSESSMENT: This is an 82-year-old female with: 1. Status post mechanical fall at home, which was witnessed by the family. 2. Left hip fracture/left femoral neck displaced fracture status post left total hip arthroplasty by Dr. Kamlesh Moses on 10/24/2018. Weightbearing as tolerated. 3. Limb pain. 4. Toxic metabolic encephalopathy, possibly superimposed on the baseline dementia unclear. 5. Dysphagia. 6. Debility and functional decline. 7. Gait abnormality. 8. History of seizure disorder. 9. Anemia. 10. Hypercalcemia. 11. Hypertension. 12. Ejection fraction 60%. 13. Cognitive and memory impairment. 14. Possible left wrist contusion with left wrist splint in place. Incomplete database. No information available. 15. Blindness. RECOMMENDATION: This patient requires physical therapy, occupational therapy, speech therapy, and 24 hours nursing care. Physical therapy for range of motion, transfer training, endurance, balance and gait training, fall prevention with appropriate assistive device. Occupational therapy for activities of daily living, equipment, function, transfer evaluation and training upper extremity range of motion and strengthening exercise. Speech therapy for evaluation of retraining on the status of her cognition, memory, speech, language, and swallow evaluation and retraining. Nursing for evaluation of her bowel and bladder, medication regimen, skin care, prevention of pressure ulcer, patient and family education. Fall precaution, pressure ulcer precaution, cardiac precaution, and hip precaution. I will discontinue IV morphine. Further workup pending the patient's cognitive status will be deferred to primary care physician to manage. Monitor her bowel and bladder. The patient will benefit from acute inpatient rehabilitation placement when the patient is medically and surgically stable and cleared. Seizure precaution. Neurology consultation and management is recommended. I defer this to primary care physician to process. Medical and surgical management per Medicine and Surgery. Thank you for your consultation. Geraldo Vu M.D. DR: ANASTACIO JOB#: [id number] CC:
--- NOTE | 2018-10-30 11:42 | Cardiology Report ---
APPROVED REPORT EXAM: Two-dimensional and M-mode echocardiogram with Doppler and color Doppler. INDICATION Chest Pain M-Mode DIMENSIONS IVSd0.8 (0.7-1.1cm)Left Atrium (MM)2.5 (1.6-4.0cm) LVDd3.3 (3.5-5.6cm)Aortic Root3.1 (2.0-3.7cm) PWd1.2 (0.7-1.1cm)Aortic Cusp Exc.1.6 (1.5-2.0cm) LVDs2.2 (2.5-4.0cm) PWs1.1 cm Normal left ventricular chamber size, systolic function and wall motion. Left ventricular ejection fraction estimated to be 60 %. Mild left ventricular hypertrophy by 2D. Anterior Echo-free space, may be due to pericardial fat or effusion. All other cardiac chamber sizes are within normal limits. Focal aortic valve sclerosis with adequate cusp excursion. Thickened mitral valve leaflets with normal excursion. Mitral annulus and aortic root calcification. Pulmonic valve not well visualized. Normal tricuspid valve structure. IVC measured at 1.3 cm with physiologic collapse A color flow and spectral Doppler study was performed and revealed: No aortic inssuficiency. Mild mitral regurgitation. Mitral diastolic velocities suggest reduced left ventricular relaxation c/w mild LV diastolic dysfunction(Grade I). Mild tricuspid regurgitation. Tricuspid systolic velocities suggests peak right ventricular systolic pressure of 32 mmHg Trace pulmonic regurgitation present.
--- NOTE | 2018-10-31 10:22 | Discharge Summary ---
Discharge Summary Discharge Summary _ DATE OF ADMISSION: 10/23/2018 DATE OF DISCHARGE: 10/29/2018 DISCHARGED BY: Dr. العلي REASON FOR ADMISSION: 82 years old female with past medical history of hypertension, presented after witnessed fall on 10/23/2018. Patient presented to [facility]. X-ray revealed fracture of the left femoral neck. Patient subsequently was transferred to [facility] for insurance purposes. Patient was admitted for left hip fracture and surgical repair. CONSULTANTS: research center partner Dr. Ramos pulmonary Dr. Harris orthopedic surgery Dr. Moses plastic surgery Dr. Campo physical medicine and rehabilitation consultation Dr. Vu [facility] COURSE: Patient admitted to medical surgical floor. Pain management was addressed. Orthopedic surgery and cardiology consults/ for clearance were requested . ' Hand Assembler seen and evaluated patient Echocardiogram revealed ejection fraction of 60% with mild left ventricular hypertrophy. No evidence of wall motion abnormality. Right ventricular systolic pressure of 32. Per research center partner, no further cardiac intervention was necessary prior to proceeding with the left hip surgery. Blood pressure was managed with calcium channel jeferson and remained stable. Orthopedic surgeon seen and evaluated patient. Patient subsequently undergone on 10/24 left total hip arthroplasty. Patient tolerated procedure well. Pain management was addressed. Pain was controlled Bowel regimen instituted. Supportive care provided. DVT prophylaxis provided. Patient started to work with physical therapist. Fall precaution maintained. Renal parameters and electrolytes were closely monitored. Electrolytes corrected as needed. Seizure precautions were maintained. Vimpat was continued. No evidence of seizure activity while in the hospital. Physical medicine and rehabilitation consultation was requested. Recommendation provided regarding further management of this patient including physical and occupational therapy, speech therapy, and 24 hours nursing care and benefit from acute inpatient rehabilitation placement, when medically and surgically stable. Plastic surgeon seen the patient for pressure ulcer prevention and skin check. Recommendation provided regarding measures to prevent skin breakdown. Placement was arranged to [facility] to acute rehabilitation unit. Patient was transferred via ambulance for further management FINAL DIAGNOSES: Left femoral neck fracture, displaced , secondary to witnessed fall Status post total hip arthroplasty Hypertension Seizure disorder DISCHARGE MEDICATIONS: See Medication Reconciliation list. DISCHARGE INSTRUCTIONS: Patient was transferred to [facility] to acute rehabilitation unit for further management. Follow-up with medical doctor at the facility. I have been assigned to dictate discharge summary for this account. I was not involved in the patient's management. Radha Osborne NP Oct 31, 2018 10:22
== END 2018-10-29 19:50 | disposition short-term general hospital (02) | DRG 470 ==
LOC: 3E 20:49 → SDSOVERFLO 10-24 10:11 → 3E 10-24 10:15
PROC: 0SRB0JA Replacement of Left Hip Joint with Synthetic Substitute, Uncemented, Open Approach (ICD-10-PCS; principal; 2018-10-24 19:30)
DX: S72.002A Fracture of unspecified part of neck of left femur, initial encounter for closed fracture (principal); E87.1 Hypo-osmolality and hyponatremia; W10.8XXA Fall (on) (from) other stairs and steps, initial encounter; Y92.008 Other place in unspecified non-institutional (private) residence as the place of occurrence of the external cause; I10 Essential (primary) hypertension; G40.909 Epilepsy, unspecified, not intractable, without status epilepticus; Z88.6 Allergy status to analgesic agent; H54.7 Unspecified visual loss; R13.10 Dysphagia, unspecified; R26.9 Unspecified abnormalities of gait and mobility; D64.9 Anemia, unspecified; E83.52 Hypercalcemia; S60.212A Contusion of left wrist, initial encounter
CPT/HCPCS: 36415; 72170; 80048; 80053; 81001; 82533; 82962; 83735; 83930; 83935; 84100; 84300; 84439; 84443; 84481; 84484; 84550; 85025; 85610; 85730; 87081; 93005; 93306; 94003; 94150; J2250; J3490